=== PATIENT | male | born 1985 | race Two or more races ===

== ENCOUNTER 2017-08-10 11:23 | Inpatient (IN) | payer OTHER ==
[2017-08-10 16:27] VITALS: BMI 22.2
--- NOTE | 2017-08-10 16:46 | HP ---
Admission ROS [facility] Chief Complaint: I am here for rehab. I am trying to stay clean. Allergies/Adverse Reactions: Allergies Allergy/AdvReac Type Severity Reaction Status Date / Time cephalexin [From Keflex] Allergy Severe Hives Verified 08/10/17 16:18 spicy foods Allergy Uncoded 08/10/17 16:18 History of Present Illness: 32 yo male with hx IV heroin, nicotine, cocaine / crack, marijuana dependence is here seeking rehab. Reports consume marijuana because it helps stimulate his appetite and his anxiety. Smokes 5 cigarettes per day. PMH of HIV CD4 : 20 and recently started on medication and viral load in 2 million, HEP C not treated, mitral valve regurgitation, depression and anxiety, cocaine psychosis . Patient was hospitalized [facility] 07/28/17 - 08/10/17 for cellulitis of the right arm. Chest x ray 07/28/17 while at [facility]. Longest period of sobriety while in senior care x 3 months. Reports attempted to commit suicide 11/23/2013, currently denies suicidal / homicidal ideation. Hx of OD April 2017. - Ebola screening Have you traveled outside of the country in the last 21 days: No Have you had contact with anyone from an Ebola affected area: No Have you been sick,other than usual withdrawal symptoms: No Do you have a fever: No - Review of Systems Constitutional: Changes in sleep (attirbutes to anxiety), Weakness, Unintentional Wgt. Loss EENT: reports: Nose Congestion, Other (need glasses does not use) Respiratory: reports: No Symptoms reported Cardiac: reports: No Symptoms Reported GI: reports: Constipated (d/t methadone while in the hospital), Poor Appetite, Poor Fluid Intake : reports: Urgency Musculoskeletal: reports: Back Pain, Joint Pain Integumentary: reports: Other Neuro: reports: No Symptoms reported Endocrine: reports: No Symptoms Reported Hematology: reports: No Symptoms Reported Psychiatric: reports: Orientated x3, Anxious, Depressed Other Systems: Reviewed and Negative Patient History - Patient Medical History Hx Anemia: No Hx Asthma: No Hx Chronic Obstructive Pulmonary Disease (COPD): No Hx Cancer: No Hx Cardiac Disorders: Yes (Mitral valave reger) Hx Congestive Heart Failure: No Hx Hypertension: No Hx Hypercholesterolemia: No Hx Pacemaker: No HX Cerebrovascular Accident: No Hx Seizures: No Hx Dementia: No Hx Diabetes: No Hx Gastrointestinal Disorders: No Hx Liver Disease: Yes (Hep C ) Hx Genitourinary Disorders: No Hx Sexually Transmitted Disorders: No Hx Renal Disease (ESRD): No Hx Thyroid Disease: No Hx Human Immunodeficiency Virus (HIV): Yes (CD 4 = 20) Hx Hepatitis C: Yes (not treated ) Hx Depression: Yes Hx Suicide Attempt: Yes Hx Bipolar Disorder: No Hx Schizophrenia: No - Patient Surgical History Past Surgical History: No Hx Neurologic Surgery: No Hx Cataract Extraction: No Hx Cardiac Surgery: No Hx Lung Surgery: No Hx Breast Surgery: No Hx Breast Biopsy: No Hx Abdominal Surgery: No Hx Appendectomy: No Hx Cholecystectomy: No Hx Genitourinary Surgery: No Hx Section: No Hx Orthopedic Surgery: Yes (Cyst on the tail bone removal 2014) Hx Hysterectomy: No Anesthesia Reaction: No - PPD History Previous Implant?: No Documented Results: Negative w/proof PPD to be Administered?: No - Smoking Cessation Smoking history: Current every day smoker Have you smoked in the past 12 months: Yes Aproximately how many cigarettes per day: 5 Hx Chewing Tobacco Use: No Initiated information on smoking cessation: Yes 'Breaking Loose' booklet given: 08/10/17 - Substance & Tx. History Hx Alcohol Use: Yes Hx Substance Use: Yes Substance Use Type: Alcohol, Cocaine, Heroin Hx Substance Use Treatment: Yes ([facility] detox 07/28/17 - 08/10/17) - Substances Abused Heroin Route: Injection Frequency: Daily Amount used: 10-15 bags Age of first use: 21 Date of Last Use: 07/27/17 Cocaine Route: Injection Frequency: Daily Amount used: 1-2 grams Age of first use: 13 Date of Last Use: 07/27/17 Marijuana/Hashish Route: Smoking Frequency: Daily Amount used: 1/2 joint Age of first use: 14 Date of Last Use: 08/10/17 Family Disease History - Family Disease History Family Disease History: Other: Father (hx of Cocaine and Alcohol dep, alive), Mother (unkown ) Admission Physical Exam [facility] - Vital Signs Vital Signs: Vital Signs - 24 hr 08/10/17 16:13 Temperature 98.3 F Pulse Rate 106 H Respiratory 18 Rate Blood Pressure 120/82 - Physical General Appearance: Yes: No Apparent Distress, Disheveled, Thin, Anxious HEENTM: Yes: EOMI, Hearing grossly Normal, Normal ENT Inspection, Normocephalic , Normal Voice, CONNER, Pharynx Normal, Tm's normal Respiratory: Yes: Chest Non-Tender, Lungs Clear, Normal Breath Sounds, No Respiratory Distress, No Accessory Muscle Use Neck: Yes: Trachea in good position, Crepetius Breast: Yes: Breast Exam Deferred Cardiology: Yes: Regular Rhythm, Regular Rate, S1, S2 Abdominal: Yes: Normal Bowel Sounds, Non Tender, Flat, Soft Genitourinary: Yes: Within Normal Limits Back: Yes: Normal Inspection Musculoskeletal: Yes: full range of Motion, Gait Steady, Pelvis Stable Extremities: Yes: Normal Capillary Refill, Normal Inspection, Normal Range of Motion, Non-Tender 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: 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: 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 NML intact, Fully Oriented, Alert, Motor Strength 5/5, Depressed Affect Integumentary: Yes: Normal Color, Dry, Warm, Track [place] (in different healing stages) Lymphatic: Yes: Within Normal Limits - Diagnostic (1) Opioid dependence Current Visit: Yes Status: Acute Qualifiers: Substance use status: uncomplicated Qualified Code(s): F11.20 - Opioid dependence, uncomplicated (2) HIV (human immunodeficiency virus infection) Current Visit: Yes Status: Acute (3) Cocaine use, uncomplicated Current Visit: Yes Status: Acute (4) Alcohol dependence Current Visit: Yes Status: Acute Qualifiers: Substance use status: uncomplicated Qualified Code(s): F10.20 - Alcohol dependence, uncomplicated (5) IVDU (intravenous drug user) Current Visit: Yes Status: Chronic (6) Depressed affect Current Visit: Yes Status: Acute (7) History of cellulitis Current Visit: Yes Status: Acute (8) Dehydration Current Visit: Yes Status: Acute (9) Weight loss Current Visit: Yes Status: Acute [facility] Breath Alcohol Content Breath Alcohol Content: 0 Urine Drug Screen - Results Drug Screen Negative: No Urine Drug Screen Results: THC-Marijuana, MTD-Methadone
[2017-08-10] MEDS ORDERED: MAGNESIUM CITRATE 300 ML BOTTLE PO PRN (17:16)
[2017-08-10] MEDS ORDERED: MENTHOL/PHENOL 1 EACH UD MM PRN (17:16)
[2017-08-10] MEDS ORDERED: ACETAMINOPHEN 325 MG TABLET (FP) PO PRN (17:16)
[2017-08-10] MEDS ORDERED: P-EPHED 60MG/TRIPROLIDI 2.5MG TABLET PO PRN (17:16)
[2017-08-10] MEDS ORDERED: MAGNESIUM HYDROX 2400MG/30ML ORAL SUSPENSION 30 ML CUP PO PRN (17:16)
[2017-08-10] MEDS ORDERED: NICOTINE POLACRILEX 2 MG GUM BC PRN (17:16)
[2017-08-10] MEDS ORDERED: MAG HYDROX/AL HYDROX/SIMETH 30 ML UNIT-DOSE CUP PO PRN (17:16)
[2017-08-10] MEDS ORDERED: IBUPROFEN 400 MG TABLET (FP) PO PRN (17:16)
[2017-08-10] MEDS ORDERED: guaiFENesin/D-METHORPHAN HB 10 ML UNIT-DOSE CUPS PO PRN (17:16)
[2017-08-10] MEDS ORDERED: AZITHROMYCIN 600 MG TABLET PO SCH (17:30)
[2017-08-10] MEDS: SULFAMETHOXAZOLE/TRIMETHOPRIM 800MG/160MG D.S. TABLET PO SCH (21:35)
[2017-08-10] MEDS: THIAMINE HCL 100 MG TABLET (FP) PO SCH (21:35)
[2017-08-10 22:53] LABS: URINE APPEARANCE CLEAR; URINE BILIRUBIN NEGATIVE (NEGATIVE); URINE BLOOD NEGATIVE (NEGATIVE); URINE COLOR YELLOW; URINE GLUCOSE (UA) NEGATIVE (NEGATIVE); URINE KETONE NEGATIVE (NEGATIVE); URINE LEUK ESTERASE TRACE (NEGATIVE); URINE NITRITE NEGATIVE (NEGATIVE); URINE PROTEIN NEGATIVE (NEGATIVE); URINE UROBILINOGEN NEGATIVE mg/dL (0.2-1.0)
[2017-08-10 23:04] LABS: EPI CELLS RARE /HPF (FEW); URINE MUCUS RARE
[2017-08-11] MEDS: SULFAMETHOXAZOLE/TRIMETHOPRIM 800MG/160MG D.S. TABLET PO SCH ×2 (10:35→21:21)
[2017-08-11] MEDS: PRENATAL VITAMINS W/ FOLIC ACID TABLET (FP) PO SCH (10:36)
[2017-08-11] MEDS: NICOTINE 14 MG/24 HOURS TOPICAL PATCH TD SCH (10:36)
[2017-08-11] MEDS: AZITHROMYCIN 600 MG TABLET PO SCH (10:37)
[2017-08-11] MEDS: ELVITEG/COB/EMTRI/TENOFO (STRIBILD) TABLET -NF PO SCH (10:37)
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
[2017-08-11] MEDS ORDERED: hydrOXYzine PAMOATE 50 MG CAPSULE (FP) PO PRN (14:04)
[2017-08-11 14:33] LABS: HEMATOCRIT 38.7 % (35.4-49); HEMOGLOBIN 12.8 GM/dL (11.7-16.9); MCH 28.6 pg (25.7-33.7); MEAN CELL VOLUME 86.7 fl (80-96); MEAN PLT VOLUME 7.7 fl (7.5-11.1); PLATELET COUNT 216 K/MM3 (134-434); RBC 4.47 M/mm3 (4.00-5.60); RDW 15.1 % (11.9-15.9)
[2017-08-11 16:06] LABS: ALBUMIN 3.6 g/dl (3.4-5.0); ANION GAP 10 (8-16); BILIRUBIN,TOTAL 0.8 mg/dL (0.2-1.0); BLOOD UREA NITROGEN 19 mg/dL (7-18); CALCIUM 8.5 mg/dL (8.5-10.1); CHLORIDE 102 mmol/L (98-107); CO2 23 mmol/L (21-32); CREATININE 1.2 mg/dL (0.7-1.3); GLUCOSE,RANDOM 154 mg/dL (74-106); POTASSIUM 4.2 mmol/L (3.5-5.1); SGOT/AST 37 U/L (15-37); SGPT/ALT 44 U/L (12-78); SODIUM 135 mmol/L (136-145); TOT PROT 8.5 g/dl (6.4-8.2)
[2017-08-11 16:07] LABS: ALK PHOS 97 U/L (45-117)
[2017-08-11] MEDS: traZODone HCL 100 MG TABLET (FP) PO SCH (21:21)
[2017-08-11] MEDS: THIAMINE HCL 100 MG TABLET (FP) PO SCH (21:21)
[2017-08-12] MEDS: PRENATAL VITAMINS W/ FOLIC ACID TABLET (FP) PO SCH (09:57)
[2017-08-12] MEDS: SULFAMETHOXAZOLE/TRIMETHOPRIM 800MG/160MG D.S. TABLET PO SCH ×2 (09:57→21:23)
[2017-08-12] MEDS: ELVITEG/COB/EMTRI/TENOFO (STRIBILD) TABLET -NF PO SCH (09:57)
[2017-08-12] MEDS: NICOTINE 14 MG/24 HOURS TOPICAL PATCH TD SCH (09:58)
[2017-08-12] MEDS: traZODone HCL 100 MG TABLET (FP) PO SCH (21:23)
[2017-08-12] MEDS: THIAMINE HCL 100 MG TABLET (FP) PO SCH (21:23)
[2017-08-13] MEDS: SULFAMETHOXAZOLE/TRIMETHOPRIM 800MG/160MG D.S. TABLET PO SCH (10:11)
[2017-08-13] MEDS: NICOTINE 14 MG/24 HOURS TOPICAL PATCH TD SCH (10:11)
[2017-08-13] MEDS: PRENATAL VITAMINS W/ FOLIC ACID TABLET (FP) PO SCH (10:11)
[2017-08-13] MEDS: ELVITEG/COB/EMTRI/TENOFO (STRIBILD) TABLET -NF PO SCH (10:11)
--- NOTE | 2017-08-13 13:59 | PN ---
[facility] Progress Note (SOAP) Subjective: increased lump left forearm, but rerythema decreaseing. no h/o idu at this site Objective: 08/13/17 13:57 Vital Signs - 24 hr 08/13/17 08/13/17 08/13/17 00:30 03:30 07:10 Temperature 97.5 F L Pulse Rate 92 H Respiratory 17 18 18 Rate Blood Pressure 128/80 Laboratory Tests 08/10/17 08/10/17 08/10/17 08:45 08:45 08:45 WBC 5.0 RBC 4.47 Hgb 12.8 Hct 38.7 MCV 86.7 MCH 28.6 MCHC 33.0 RDW 15.1 Plt Count 216 MPV 7.7 Sodium 135 L Potassium 4.2 Chloride 102 Carbon Dioxide 23 Anion Gap 10 BUN 19 H Creatinine 1.2 Creat Clearance w eGFR > 60 Random Glucose 154 H Calcium 8.5 Total Bilirubin 0.8 AST 37 ALT 44 Alkaline Phosphatase 97 Total Protein 8.5 H Albumin 3.6 Urine Color Urine Appearance Urine pH Ur Specific [place] Urine Protein Urine Glucose (UA) Urine Ketones Urine Blood Urine Nitrite Urine Bilirubin Urine Urobilinogen Ur Leukocyte Esterase Urine WBC (Auto) Urine RBC (Auto) Ur Epithelial Cells Urine Mucus RPR Titer Nonreactive 08/10/17 Unknown WBC RBC Hgb Hct MCV MCH MCHC RDW Plt Count MPV Sodium Potassium Chloride Carbon Dioxide Anion Gap BUN Creatinine Creat Clearance w eGFR Random Glucose Calcium Total Bilirubin AST ALT Alkaline Phosphatase Total Protein Albumin Urine Color Yellow Urine Appearance Clear Urine pH 5.0 Ur Specific [place] 1.021 Urine Protein Negative Urine Glucose (UA) Negative Urine Ketones Negative Urine Blood Negative Urine Nitrite Negative Urine Bilirubin Negative Urine Urobilinogen Negative Ur Leukocyte Esterase Trace Urine WBC (Auto) 4 Urine RBC (Auto) 2 Ur Epithelial Cells Rare Urine Mucus Rare RPR Titer tender lump 1 cm, non fluctuant, no erytehma slightly tender, possible foliculitis, patietn is allergic to keflex adn has beent aking bactrim Assessment: 08/13/17 13:58 lump left forearm, non fluctuant, will d/c bactrim start aubmentin follow if increaasing size/painh/fever or flutuance develops will send to ED for i and d. patient is HIV +.
[2017-08-13] MEDS: PANTOPRAZOLE 40 MG TABLET (FP) PO SCH (15:03)
[2017-08-13] MEDS: AMOX TR/POT CLAV 875MG/125MG TABLETS (FP) PO SCH (17:38)
[2017-08-13] MEDS: THIAMINE HCL 100 MG TABLET (FP) PO SCH (21:22)
[2017-08-13] MEDS: NAPROXEN 500 MG TABLET (FP) PO SCH (21:22)
[2017-08-13] MEDS: traZODone HCL 100 MG TABLET (FP) PO SCH (21:23)
[2017-08-14] MEDS: AMOX TR/POT CLAV 875MG/125MG TABLETS (FP) PO SCH ×2 (08:25→17:12)
[2017-08-14] MEDS: PRENATAL VITAMINS W/ FOLIC ACID TABLET (FP) PO SCH (10:08)
[2017-08-14] MEDS: NAPROXEN 500 MG TABLET (FP) PO SCH ×2 (10:08→21:26)
[2017-08-14] MEDS: NICOTINE 14 MG/24 HOURS TOPICAL PATCH TD SCH (10:08)
[2017-08-14] MEDS: PANTOPRAZOLE 40 MG TABLET (FP) PO SCH (10:08)
[2017-08-14] MEDS: ELVITEG/COB/EMTRI/TENOFO (STRIBILD) TABLET -NF PO SCH (10:08)
[2017-08-14] MEDS ORDERED: COLLOIDAL OATMEAL 1 BAR EACH TP PRN (13:58)
--- NOTE | 2017-08-14 14:06 | PN ---
BHS Progress Note (SOAP) Subjective: dry skin, lump on the right arm, and left left forearm Objective: 08/14/17 14:03 Vital Signs Temperature 97.7 F 08/14/17 06:59 Pulse Rate 89 08/14/17 06:59 Respiratory Rate 18 08/14/17 06:59 Blood Pressure 136/96 08/14/17 06:59 O2 Sat by Pulse Oximetry (%) Laboratory Last Values WBC 5.0 K/mm3 (4.0-10.0) 08/10/17 08:45 RBC 4.47 M/mm3 (4.00-5.60) 08/10/17 08:45 Hgb 12.8 GM/dL (11.7-16.9) 08/10/17 08:45 Hct 38.7 % (35.4-49) 08/10/17 08:45 MCV 86.7 fl (80-96) 08/10/17 08:45 MCH 28.6 pg (25.7-33.7) 08/10/17 08:45 MCHC 33.0 g/dl (32.0-35.9) 08/10/17 08:45 RDW 15.1 % (11.9-15.9) 08/10/17 08:45 Plt Count 216 K/MM3 (134-434) 08/10/17 08:45 MPV 7.7 fl (7.5-11.1) 08/10/17 08:45 Sodium 135 mmol/L (136-145) L 08/10/17 08:45 Potassium 4.2 mmol/L (3.5-5.1) 08/10/17 08:45 Chloride 102 mmol/L (98-107) 08/10/17 08:45 Carbon Dioxide 23 mmol/L (21-32) 08/10/17 08:45 Anion Gap 10 (8-16) 08/10/17 08:45 BUN 19 mg/dL (7-18) H 08/10/17 08:45 Creatinine 1.2 mg/dL (0.7-1.3) 08/10/17 08:45 Creat Clearance w eGFR > 60 (>60) 08/10/17 08:45 Random Glucose 154 mg/dL (74-106) H 08/10/17 08:45 Calcium 8.5 mg/dL (8.5-10.1) 08/10/17 08:45 Total Bilirubin 0.8 mg/dL (0.2-1.0) 08/10/17 08:45 AST 37 U/L (15-37) 08/10/17 08:45 ALT 44 U/L (12-78) 08/10/17 08:45 Alkaline Phosphatase 97 U/L (45-117) 08/10/17 08:45 Total Protein 8.5 g/dl (6.4-8.2) H 08/10/17 08:45 Albumin 3.6 g/dl (3.4-5.0) 08/10/17 08:45 Urine Color Yellow 08/10/17 Unknown Urine Appearance Clear 08/10/17 Unknown Urine pH 5.0 (5.0-8.0) 08/10/17 Unknown Ur Specific [place] 1.021 (1.001-1.035) 08/10/17 Unknown Urine Protein Negative (NEGATIVE) 08/10/17 Unknown Urine Glucose (UA) Negative (NEGATIVE) 08/10/17 Unknown Urine Ketones Negative (NEGATIVE) 08/10/17 Unknown Urine Blood Negative (NEGATIVE) 08/10/17 Unknown Urine Nitrite Negative (NEGATIVE) 08/10/17 Unknown Urine Bilirubin Negative (NEGATIVE) 08/10/17 Unknown Urine Urobilinogen Negative mg/dL (0.2-1.0) 08/10/17 Unknown Ur Leukocyte Esterase Trace (NEGATIVE) 08/10/17 Unknown Urine WBC (Auto) 4 /hpf (3-5) 08/10/17 Unknown Urine RBC (Auto) 2 /hpf (0-3) 08/10/17 Unknown Ur Epithelial Cells Rare /HPF (FEW) 08/10/17 Unknown Urine Mucus Rare 08/10/17 Unknown RPR Titer Nonreactive (NONREACTIVE) 08/10/17 08:45 GENERAL APPEARANCE: Well developed, well nourished, alert and cooperative, and appears to be in no acute distress. CARDIAC: Normal S1 and S2. No S3, S4. Rhythm is regular. + Murmur LUNGS: Clear to auscultation and percussion without rales, rhonchi, wheezing or diminished breath sounds. SKIN: Skin normal color, texture and turgor. + dry skin, +non-purulent 1 CM nodule on the right deltoid and left forearm 08/14/17 14:07 Assessment: 08/14/17 14:08 Foliculitis Dry skin Plan: Continue keep skin clean and dry A[place]o soap Increase fluids Continue Augmentin as previsously prescribe Mupirocin BID TOP to the affected area
[2017-08-14] MEDS: MUPIROCIN CA 2% TOPICAL CREAM 15 GM TUBE TP SCH ×2 (17:14→21:26)
[2017-08-14] MEDS: THIAMINE HCL 100 MG TABLET (FP) PO SCH (21:26)
[2017-08-14] MEDS: traZODone HCL 100 MG TABLET (FP) PO SCH (21:26)
[2017-08-15] MEDS: AMOX TR/POT CLAV 875MG/125MG TABLETS (FP) PO SCH ×2 (08:43→17:49)
[2017-08-15] MEDS: PANTOPRAZOLE 40 MG TABLET (FP) PO SCH (10:08)
[2017-08-15] MEDS: NAPROXEN 500 MG TABLET (FP) PO SCH ×2 (10:08→21:36)
[2017-08-15] MEDS: NICOTINE 14 MG/24 HOURS TOPICAL PATCH TD SCH (10:08)
[2017-08-15] MEDS: PRENATAL VITAMINS W/ FOLIC ACID TABLET (FP) PO SCH (10:08)
[2017-08-15] MEDS: ELVITEG/COB/EMTRI/TENOFO (STRIBILD) TABLET -NF PO SCH (10:10)
[2017-08-15] MEDS: MUPIROCIN CA 2% TOPICAL CREAM 15 GM TUBE TP SCH ×2 (10:10→21:36)
--- NOTE | 2017-08-15 13:38 | EKG ---
Test Reason : Blood Pressure : / mmHG Vent. Rate : 082 BPM Atrial Rate : 082 BPM P-R Int : 124 ms QRS Dur : 088 ms QT Int : 376 ms P-R-T Axes : 025 074 073 degrees QTc Int : 439 ms NORMAL SINUS RHYTHM NORMAL ECG NO PREVIOUS ECGS AVAILABLE Confirmed by MD Leland, Brendon ([id number]) on 08/15/2017 1:38:01 PM Referred By: Confirmed By:Brendon Ha MD
[2017-08-15] MEDS: LOPERAMIDE HCL 2 MG CAPSULE PO PRN ×2 (14:28→21:37)
[2017-08-15] MEDS: THIAMINE HCL 100 MG TABLET (FP) PO SCH (21:35)
[2017-08-15] MEDS: traZODone HCL 100 MG TABLET (FP) PO SCH (21:35)
[2017-08-16] MEDS: AMOX TR/POT CLAV 875MG/125MG TABLETS (FP) PO SCH ×2 (08:29→17:32)
[2017-08-16] MEDS: PANTOPRAZOLE 40 MG TABLET (FP) PO SCH (10:21)
[2017-08-16] MEDS: NICOTINE 14 MG/24 HOURS TOPICAL PATCH TD SCH (10:22)
[2017-08-16] MEDS: NAPROXEN 500 MG TABLET (FP) PO SCH ×2 (10:22→21:33)
[2017-08-16] MEDS: PRENATAL VITAMINS W/ FOLIC ACID TABLET (FP) PO SCH (10:22)
[2017-08-16] MEDS: MUPIROCIN CA 2% TOPICAL CREAM 15 GM TUBE TP SCH ×2 (10:22→21:34)
[2017-08-16] MEDS: ELVITEG/COB/EMTRI/TENOFO (STRIBILD) TABLET -NF PO SCH (10:23)
[2017-08-16] MEDS: LOPERAMIDE HCL 2 MG CAPSULE PO PRN (10:25)
[2017-08-16] MEDS: traZODone HCL 100 MG TABLET (FP) PO SCH (21:33)
[2017-08-16] MEDS: THIAMINE HCL 100 MG TABLET (FP) PO SCH (21:33)
[2017-08-17] MEDS: AMOX TR/POT CLAV 875MG/125MG TABLETS (FP) PO SCH ×2 (08:26→17:47)
[2017-08-17] MEDS: PANTOPRAZOLE 40 MG TABLET (FP) PO SCH (10:10)
[2017-08-17] MEDS: PRENATAL VITAMINS W/ FOLIC ACID TABLET (FP) PO SCH (10:11)
[2017-08-17] MEDS: NAPROXEN 500 MG TABLET (FP) PO SCH ×2 (10:11→21:29)
[2017-08-17] MEDS: ELVITEG/COB/EMTRI/TENOFO (STRIBILD) TABLET -NF PO SCH (10:11)
[2017-08-17] MEDS: MUPIROCIN CA 2% TOPICAL CREAM 15 GM TUBE TP SCH ×2 (10:12→21:29)
[2017-08-17] MEDS: NICOTINE 14 MG/24 HOURS TOPICAL PATCH TD SCH (10:13)
[2017-08-17] MEDS: THIAMINE HCL 100 MG TABLET (FP) PO SCH (21:29)
[2017-08-17] MEDS: traZODone HCL 100 MG TABLET (FP) PO SCH (21:29)
[2017-08-18] MEDS: AMOX TR/POT CLAV 875MG/125MG TABLETS (FP) PO SCH ×2 (08:26→17:45)
[2017-08-18] MEDS: NICOTINE 14 MG/24 HOURS TOPICAL PATCH TD SCH (10:30)
[2017-08-18] MEDS: PRENATAL VITAMINS W/ FOLIC ACID TABLET (FP) PO SCH (10:30)
[2017-08-18] MEDS: PANTOPRAZOLE 40 MG TABLET (FP) PO SCH (10:30)
[2017-08-18] MEDS: NAPROXEN 500 MG TABLET (FP) PO SCH ×2 (10:30→21:37)
[2017-08-18] MEDS: ELVITEG/COB/EMTRI/TENOFO (STRIBILD) TABLET -NF PO SCH (10:32)
[2017-08-18] MEDS: AZITHROMYCIN 600 MG TABLET PO SCH (10:33)
[2017-08-18] MEDS: MUPIROCIN CA 2% TOPICAL CREAM 15 GM TUBE TP SCH ×2 (10:33→21:37)
[2017-08-18] MEDS: traZODone HCL 100 MG TABLET (FP) PO SCH (21:37)
[2017-08-18] MEDS: THIAMINE HCL 100 MG TABLET (FP) PO SCH (21:37)
[2017-08-19] MEDS: AMOX TR/POT CLAV 875MG/125MG TABLETS (FP) PO SCH ×2 (08:41→17:55)
[2017-08-19] MEDS: NAPROXEN 500 MG TABLET (FP) PO SCH ×2 (10:15→21:28)
[2017-08-19] MEDS: ELVITEG/COB/EMTRI/TENOFO (STRIBILD) TABLET -NF PO SCH (10:15)
[2017-08-19] MEDS: NICOTINE 14 MG/24 HOURS TOPICAL PATCH TD SCH (10:15)
[2017-08-19] MEDS: PANTOPRAZOLE 40 MG TABLET (FP) PO SCH (10:15)
[2017-08-19] MEDS: PRENATAL VITAMINS W/ FOLIC ACID TABLET (FP) PO SCH (10:15)
[2017-08-19] MEDS: MUPIROCIN CA 2% TOPICAL CREAM 15 GM TUBE TP SCH ×2 (10:15→21:28)
[2017-08-19] MEDS: THIAMINE HCL 100 MG TABLET (FP) PO SCH (21:28)
[2017-08-19] MEDS: traZODone HCL 100 MG TABLET (FP) PO SCH (21:28)
[2017-08-20] MEDS: AMOX TR/POT CLAV 875MG/125MG TABLETS (FP) PO SCH ×2 (08:10→18:47)
[2017-08-20] MEDS: PANTOPRAZOLE 40 MG TABLET (FP) PO SCH (10:29)
[2017-08-20] MEDS: PRENATAL VITAMINS W/ FOLIC ACID TABLET (FP) PO SCH (10:29)
[2017-08-20] MEDS: NAPROXEN 500 MG TABLET (FP) PO SCH ×2 (10:29→21:30)
[2017-08-20] MEDS: MUPIROCIN CA 2% TOPICAL CREAM 15 GM TUBE TP SCH ×2 (10:30→21:30)
[2017-08-20] MEDS: NICOTINE 14 MG/24 HOURS TOPICAL PATCH TD SCH (10:30)
[2017-08-20] MEDS: ELVITEG/COB/EMTRI/TENOFO (STRIBILD) TABLET -NF PO SCH (10:31)
[2017-08-20] MEDS: THIAMINE HCL 100 MG TABLET (FP) PO SCH (21:30)
[2017-08-20] MEDS: traZODone HCL 100 MG TABLET (FP) PO SCH (21:30)
[2017-08-21] MEDS: AMOX TR/POT CLAV 875MG/125MG TABLETS (FP) PO SCH ×2 (08:35→18:09)
[2017-08-21] MEDS: PANTOPRAZOLE 40 MG TABLET (FP) PO SCH (10:17)
[2017-08-21] MEDS: NAPROXEN 500 MG TABLET (FP) PO SCH ×2 (10:17→21:29)
[2017-08-21] MEDS: ELVITEG/COB/EMTRI/TENOFO (STRIBILD) TABLET -NF PO SCH (10:18)
[2017-08-21] MEDS: PRENATAL VITAMINS W/ FOLIC ACID TABLET (FP) PO SCH (10:18)
[2017-08-21] MEDS: NICOTINE 14 MG/24 HOURS TOPICAL PATCH TD SCH (10:18)
[2017-08-21] MEDS: MUPIROCIN CA 2% TOPICAL CREAM 15 GM TUBE TP SCH ×2 (10:21→21:30)
[2017-08-21] MEDS: traZODone HCL 100 MG TABLET (FP) PO SCH (21:29)
[2017-08-21] MEDS: THIAMINE HCL 100 MG TABLET (FP) PO SCH (21:29)
[2017-08-22] MEDS: AMOX TR/POT CLAV 875MG/125MG TABLETS (FP) PO SCH ×2 (08:28→17:48)
[2017-08-22] MEDS: NAPROXEN 500 MG TABLET (FP) PO SCH ×2 (10:19→21:31)
[2017-08-22] MEDS: PRENATAL VITAMINS W/ FOLIC ACID TABLET (FP) PO SCH (10:19)
[2017-08-22] MEDS: ELVITEG/COB/EMTRI/TENOFO (STRIBILD) TABLET -NF PO SCH (10:19)
[2017-08-22] MEDS: PANTOPRAZOLE 40 MG TABLET (FP) PO SCH (10:19)
[2017-08-22] MEDS: NICOTINE 14 MG/24 HOURS TOPICAL PATCH TD SCH (10:20)
[2017-08-22] MEDS: MUPIROCIN CA 2% TOPICAL CREAM 15 GM TUBE TP SCH ×2 (10:20→21:32)
[2017-08-22] MEDS: traZODone HCL 100 MG TABLET (FP) PO SCH (21:31)
[2017-08-22] MEDS: THIAMINE HCL 100 MG TABLET (FP) PO SCH (21:31)
[2017-08-23] MEDS: PRENATAL VITAMINS W/ FOLIC ACID TABLET (FP) PO SCH (10:24)
[2017-08-23] MEDS: AMOX TR/POT CLAV 875MG/125MG TABLETS (FP) PO SCH ×2 (10:24→17:51)
[2017-08-23] MEDS: NAPROXEN 500 MG TABLET (FP) PO SCH ×2 (10:24→21:26)
[2017-08-23] MEDS: NICOTINE 14 MG/24 HOURS TOPICAL PATCH TD SCH (10:25)
[2017-08-23] MEDS: PANTOPRAZOLE 40 MG TABLET (FP) PO SCH (10:26)
[2017-08-23] MEDS: ELVITEG/COB/EMTRI/TENOFO (STRIBILD) TABLET -NF PO SCH (10:26)
[2017-08-23] MEDS: MUPIROCIN CA 2% TOPICAL CREAM 15 GM TUBE TP SCH ×2 (10:27→21:26)
[2017-08-23] MEDS: traZODone HCL 100 MG TABLET (FP) PO SCH (21:26)
[2017-08-23] MEDS: THIAMINE HCL 100 MG TABLET (FP) PO SCH (21:26)
[2017-08-24 06:48] VITALS: BP 148/84; PULSE 99; TEMP 97.7
[2017-08-24] MEDS: PRENATAL VITAMINS W/ FOLIC ACID TABLET (FP) PO SCH (09:14)
[2017-08-24] MEDS: MUPIROCIN CA 2% TOPICAL CREAM 15 GM TUBE TP SCH (09:14)
[2017-08-24] MEDS: NICOTINE 14 MG/24 HOURS TOPICAL PATCH TD SCH (09:14)
[2017-08-24] MEDS: PANTOPRAZOLE 40 MG TABLET (FP) PO SCH (09:14)
[2017-08-24] MEDS: NAPROXEN 500 MG TABLET (FP) PO SCH (09:14)
[2017-08-24] MEDS: AMOX TR/POT CLAV 875MG/125MG TABLETS (FP) PO SCH (09:14)
[2017-08-24] MEDS: ELVITEG/COB/EMTRI/TENOFO (STRIBILD) TABLET -NF PO SCH (09:15)
--- NOTE | 2017-08-24 09:19 | PN ---
Psychiatric Progress Note Vital Signs: Vital Signs Period Temp Pulse Resp BP Sys/Downs Pulse Ox Last 24 Hr 97.7 F 99 16-16 148/84 Date of Session: 08/24/17 Chief Complaint:: discharge visit HPI: Patient has addressed cocaine, cannabis, opioid, nicotine dependence comorbid Substance induced anxiety and mood disorder. ROS: HIV medically managed. Hep C. Current Medications: Active Medications Generic Name Dose Route Start Last Admin Trade Name Freq PRN Reason Stop Dose Admin Acetaminophen 650 mg 08/10/17 17:16 Tylenol - PO Q4H PRN FEVER Al Hydroxide/Mg Hydroxide 30 ml 08/10/17 17:16 Mylanta Oral Suspension - PO Q6H PRN DYSPEPSIA Amoxicillin/Clavulanate Potassium 1 tab 08/13/17 17:30 08/24/17 09:14 Augmentin - 875mg Tablet PO 1 tab BID@0800,1730 RADHA Administration Azithromycin 1,200 mg 08/11/17 10:00 08/18/17 10:33 Zithromax - PO 1,200 mg Fr@1000 RADHA Administration Colloidal Oatmeal 1 applic 08/14/17 13:58 08/15/17 22:03 Aveeno Soap - TP 1 applic DAILY PRN Administration HYGEINE Elvitegravir/Cobicis/Emtricit/Tenof 1 tab 08/11/17 10:00 08/24/17 09:15 Stribild (Non-Formulary) PO 1 tab DAILY RADHA Administration Eucalyptus/Menthol/Phenol/Sorbitol 1 each 08/10/17 17:16 Cepastat Lozenge - MM Q4H PRN SORE THROAT Guaifenesin 10 ml 08/10/17 17:16 Robitussin Dm - PO Q6H PRN COUGH Hydroxyzine Pamoate 50 mg 08/11/17 14:04 08/13/17 13:04 Vistaril - PO 50 mg Q4H PRN Administration ANXIETY Loperamide HCl 4 mg 08/10/17 17:16 08/16/17 10:25 Imodium - PO 4 mg Q6H PRN Administration DIARRHEA Magnesium Citrate 300 ml 08/10/17 17:16 Citroma - PO Q48H PRN CONSTIPATION Magnesium Hydroxide 30 ml 08/10/17 17:16 Milk Of Magnesia - PO DAILY PRN CONSTIPATION Mupirocin 1 applic 08/14/17 17:00 08/24/17 09:14 Bactroban 2% Cream - TP Not Given BID RADHA Naproxen 500 mg 08/13/17 22:00 08/24/17 09:14 Naprosyn - PO 500 mg BID RADHA Administration Nicotine 14 mg 08/11/17 10:00 08/24/17 09:14 Nicoderm Patch - TD Not Given DAILY RADHA Nicotine Polacrilex 2 mg 08/10/17 17:16 Nicorette Gum - BC Q2H PRN NICOTINE REPLACEMENT RX Pantoprazole Sodium 40 mg 08/13/17 14:15 08/24/17 09:14 Protonix - PO 40 mg DAILY RADHA Administration Multivit/Folic Acid/Iron 1 tab 08/11/17 10:00 08/24/17 09:14 Vitamins (Sjr) - PO 1 tab DAILY RADHA Administration Pseudoephedrine/Triprolidine 1 combo 08/10/17 17:16 Actifed - PO TID PRN NASAL CONGESTION Thiamine HCl 100 mg 08/10/17 22:00 08/23/17 21:26 Vitamin B1 - PO 100 mg HS RADHA Administration Trazodone HCl 100 mg 08/11/17 22:00 08/23/17 21:26 Desyrel - PO 100 mg HS RADHA Administration Current Side Effect: No Lab tests ordered: No Lab tests reviewed: Yes Provider note:: Patient has completed today his treatment and met his goals, will continue to address his issues at the next level of care ([facility]), he learhed in this treatment coping skills to prevent relapse and identified his triggers and was encouraged to utilize all supports to prevent relapses. Patient reports trazodone was effective, no side-efefcts reported, scripts provided for 30 days , patient is stable for discharge today. Total face to face time:: 15 Mental Status Exam - Mental Status Exam Alert and Oriented to: Time, Place, Person Cognitive Function: Good Patient Appearance: Well Groomed Mood: Hopeful Affect: Appropriate, Mood Congruent Patient Behavior: Appropriate, Cooperative Speech Pattern: Clear, Appropriate Voice Loudness: Normal Thought Process: Intact, Goal Oriented Thought Disorder: Not Present Hallucinations: Denies Suicidal Ideation: Denies Homicidal Ideation: Denies Insight/Judgement: Fair Sleep: Fair Appetite: Fair Muscle strength/Tone: Normal Gait/Station: Normal Psychiatric Treatment Plan - Problem List (1) Cocaine dependence Current Visit: Yes (2) Cannabis dependence Current Visit: Yes (3) Opioid dependence Current Visit: Yes Qualifiers: Substance use status: uncomplicated Qualified Code(s): F11.20 - Opioid dependence, uncomplicated (4) Substance induced mood disorder Current Visit: Yes (5) Substance-induced anxiety disorder Current Visit: Yes (6) Nicotine dependence Current Visit: Yes
== END 2017-08-24 09:30 | disposition home or self-care (01) | DRG 772 ==
LOC: YASAS 11:23 → Y5N 17:43
PROVIDERS: ADMIT Psychiatry & Neurology Psychiatry; ATTEND Psychiatry & Neurology Psychiatry
PROC: HZ42ZZZ Group Counseling for Substance Abuse Treatment, Cognitive-Behavioral (ICD-10-PCS; principal; 2017-08-10)
DX: F11.20 Opioid dependence, uncomplicated (principal); F14.20 Cocaine dependence, uncomplicated; F12.20 Cannabis dependence, uncomplicated; F10.20 Alcohol dependence, uncomplicated; F17.210 Nicotine dependence, cigarettes, uncomplicated; F19.24 Other psychoactive substance dependence with psychoactive substance-induced mood disorder; F19.280 Other psychoactive substance dependence with psychoactive substance-induced anxiety disorder; Z21 Asymptomatic human immunodeficiency virus [HIV] infection status; B18.2 Chronic viral hepatitis C; L73.9 Follicular disorder, unspecified; L98.8 Other specified disorders of the skin and subcutaneous tissue; E86.0 Dehydration; Z87.898 Personal history of other specified conditions; Z88.1 Allergy status to other antibiotic agents; Z59.0 Homelessness
CPT/HCPCS: 36415; 80053; 81003; 81015; 82962; 85027; 86593; 93005; 93010

== ENCOUNTER 2018-02-27 12:07 | Inpatient (IN) | payer OTHER ==
[2018-02-27 13:59] VITALS: BMI 21.2
--- NOTE | 2018-02-27 20:18 | HP ---
COWS - Scale Resting Pulse: 1= [place] 81-100 Sweatin=Flushed/Facial Moisture Restless Observation: 1= Difficult to Sit Still Pupil Size: 1= Pupils >than Normal Bone or Joint Aches: 2= Severe Diffuse Aches Runny Nose/ Eye Tearin= Runny Nose/Eyes GI Upset > 30mins: 1= Stomach Cramp Tremor Observation: 1= Tremor [place], Not Seen Yawning Observation: 1= 1-2x During Session Anxiety or Irritability: 2=Irritable/Anxious Goose Flesh Skin: 3=Piloerection COWS Score: 17 Admission ROS S - [facility] Chief Complaint: WITHDRAWAL SYMPTOMS Allergies/Adverse Reactions: Allergies Allergy/AdvReac Type Severity Reaction Status Date / Time cephalexin [From Keflex] Allergy Severe Hives Verified 02/27/18 18:43 spicy foods Allergy Uncoded 02/27/18 18:43 History of Present Illness: 33 Y.O. MAN WITH AN EXTENSIVE HISTORY OF HEROIN AND COCAINE DEPENDENCE IS HERE SEEKING DETOX. HE REPORTS HE LAST COMPLETED DETOX 1 MONTH AGO AT [facility]. REPORTS HIS LONG PERIOD OF ILLICIT DRUG ABSTINENCE HAS BEEN 1 YEAR. Exam Limitations: No Limitations - Ebola screening Have you traveled outside of the country in the last 21 days: No Have you had contact with anyone from an Ebola affected area: No Have you been sick,other than usual withdrawal symptoms: No Do you have a fever: No - Review of Systems Constitutional: Chills, Loss of Appetite, Night Sweats, Unintentional Wgt. Loss EENT: reports: Tearing, Nose Congestion Respiratory: reports: Cough Cardiac: reports: No Symptoms Reported GI: reports: Poor Appetite : reports: No Symptoms Reported Musculoskeletal: reports: Back Pain, Joint Pain Integumentary: reports: No Symptoms Reported Neuro: reports: No Symptoms reported Endocrine: reports: No Symptoms Reported Hematology: reports: No Symptoms Reported Psychiatric: reports: Anxious, Depressed Other Systems: Reviewed and Negative Patient History - Patient Medical History Hx Anemia: No Hx Asthma: No Hx Chronic Obstructive Pulmonary Disease (COPD): No Hx Cancer: No Hx Cardiac Disorders: No Hx Congestive Heart Failure: No Hx Hypertension: No Hx Hypercholesterolemia: No Hx Pacemaker: No HX Cerebrovascular Accident: No Hx Seizures: No Hx Dementia: No Hx Diabetes: No Hx Gastrointestinal Disorders: No Hx Liver Disease: Yes (Hep C ) Hx Genitourinary Disorders: No Hx Sexually Transmitted Disorders: No Hx Renal Disease (ESRD): No Hx Thyroid Disease: No Hx Human Immunodeficiency Virus (HIV): Yes Hx Hepatitis C: Yes (not treated ) Hx Depression: Yes Hx Suicide Attempt: Yes (Tried to overdose in 2013) Hx Bipolar Disorder: No Hx Schizophrenia: No Other Medical History: C/o Insomnia - Patient Surgical History Past Surgical History: No Hx Neurologic Surgery: No Hx Cataract Extraction: No Hx Cardiac Surgery: No Hx Lung Surgery: No Hx Breast Surgery: No Hx Breast Biopsy: No Hx Abdominal Surgery: No Hx Appendectomy: No Hx Cholecystectomy: No Hx Genitourinary Surgery: No Hx Section: No Hx Orthopedic Surgery: Yes Hx Hysterectomy: No Anesthesia Reaction: No - PPD History Previous Implant?: No Documented Results: Negative w/o proof PPD to be Administered?: Yes - Reproductive History Patient is a Female of Child Bearing Age (11 -55 yrs old): No - Smoking Cessation Smoking history: Current every day smoker Have you smoked in the past 12 months: Yes Aproximately how many cigarettes per day: 5 If you are a former smoker, when did you quit?: 20 Hx Chewing Tobacco Use: No Initiated information on smoking cessation: Yes 'Breaking Loose' booklet given: 02/27/18 - Substance & Tx. History Hx Alcohol Use: No Hx Substance Use: Yes Substance Use Type: Heroin Hx Substance Use Treatment: Yes (Detox: 01/2018 at [facility] ) - Substances Abused Heroin Route: Injection Frequency: Daily Amount used: 10 BAGS Age of first use: 19 Date of Last Use: 02/27/18 Cocaine Route: Injection Frequency: Daily Amount used: $60 WORTH Age of first use: 16 Date of Last Use: 02/26/18 Family Disease History - Family Disease History Family Disease History: Other: Father (hx of Cocaine and Alcohol dep, alive), Mother (unkown ) Admission Physical Exam BHS - Vital Signs Vital Signs: Vital Signs - 24 hr 02/27/18 13:55 Temperature 99.4 F Pulse Rate 81 Respiratory 18 Rate Blood Pressure 133/81 - Physical General Appearance: Yes: Thin, Tremorous, Sweating, Anxious HEENTM: Yes: Hearing grossly Normal, Normocephalic, Normal Voice, Other (Poor dentation) Respiratory: Yes: Chest Non-Tender, Lungs Clear, Normal Breath Sounds, No Respiratory Distress, No Accessory Muscle Use Neck: Yes: No masses,lesions,Nodules, Trachea in good position Breast: Yes: Breast Exam Deferred Cardiology: Yes: Regular Rhythm, Regular Rate Abdominal: Yes: Normal Bowel Sounds, Non Tender Genitourinary: Yes: Other (No complaints reported) Back: Yes: Normal Inspection Musculoskeletal: Yes: Gait Steady, Pelvis Stable Extremities: Yes: Normal Capillary Refill, Normal Inspection 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: Yes: Alert, Normal Mood/Affect, Normal Response Integumentary: Yes: Dry, Warm, Track [place] Lymphatic: Yes: Within Normal Limits - Diagnostic (1) Opioid dependence with withdrawal Current Visit: Yes Status: Chronic (2) HCV (hepatitis C virus) Current Visit: Yes Status: Chronic (3) Nicotine dependence Current Visit: Yes Status: Chronic (4) Cocaine use, uncomplicated Current Visit: Yes Status: Chronic (5) HIV (human immunodeficiency virus infection) Current Visit: Yes Status: Chronic (6) IVDU (intravenous drug user) Current Visit: Yes Status: Chronic Cleared for Admission [facility] - Detox or Rehab [facility] Level of Care: Medically Managed Detox Regimen/Protocol: Methadone [facility] Breath Alcohol Content Breath Alcohol Content: 0 Urine Drug Screen - Results Drug Screen Negative: No Urine Drug Screen Results: THC-Marijuana, HALINA-Cocaine, OPI-Opiates, BAR- Barbiturates, MTD-Methadone, FEN-Fentanyl
[2018-02-27] MEDS ORDERED: MAGNESIUM HYDROX 2400MG/30ML ORAL SUSPENSION 30 ML CUP PO PRN (20:33)
[2018-02-27] MEDS ORDERED: hydrOXYzine PAMOATE 50 MG CAPSULE (FP) PO PRN (20:33)
[2018-02-27] MEDS ORDERED: MAGNESIUM CITRATE 300 ML BOTTLE PO PRN (20:33)
[2018-02-27] MEDS ORDERED: ACETAMINOPHEN 325 MG TABLET (FP) PO PRN (20:33)
[2018-02-27] MEDS ORDERED: P-EPHED 60MG/TRIPROLIDI 2.5MG TABLET PO PRN (20:33)
[2018-02-27] MEDS ORDERED: guaiFENesin/D-METHORPHAN HB 10 ML UNIT-DOSE CUPS PO PRN (20:33)
[2018-02-27] MEDS ORDERED: IBUPROFEN 400 MG TABLET (FP) PO PRN (20:33)
[2018-02-27] MEDS ORDERED: MAG HYDROX/AL HYDROX/SIMETH 30 ML UNIT-DOSE CUP PO PRN (20:33)
[2018-02-27] MEDS ORDERED: LOPERAMIDE HCL 2 MG CAPSULE PO PRN (20:33)
[2018-02-27] MEDS ORDERED: MENTHOL/PHENOL 1 EACH UD MM PRN (20:33)
[2018-02-27] MEDS ORDERED: METHADONE HCL 10 MG TABLET (FOR DETOX USE ONLY) PO ONE ×2 (20:33→23:00)
[2018-02-27] MEDS ORDERED: BENZOCAINE 20 % GEL TUBE MM PRN (20:36)
[2018-02-27] MEDS: BACITRACIN 0.9 GM PACKET TP SCH (21:54)
[2018-02-27] MEDS: THIAMINE HCL 100 MG TABLET (FP) PO SCH (21:58)
[2018-02-27] MEDS ORDERED: MELATONIN 5 MG TABLETS PO PRN (22:00)
[2018-02-28 00:55] LABS: URINE APPEARANCE SLCLOUDY; URINE BILIRUBIN NEGATIVE (<2.0 mg/dL); URINE COLOR YELLOW; URINE GLUCOSE (UA) NEGATIVE (NEGATIVE); URINE KETONE NEGATIVE (NEGATIVE); URINE LEUK ESTERASE TRACE (NEGATIVE); URINE NITRITE NEGATIVE (NEGATIVE); URINE PROTEIN NEGATIVE (NEGATIVE); URINE UROBILINOGEN NEGATIVE mg/dL (0.2-1.0)
[2018-02-28 01:07] LABS: CALCIUM OXALATE CRYSTALS MANY /hpf (NONE SEEN); EPI CELLS RARE /HPF (FEW); URINE BACTERIA RARE /hpf (NONE SEEN); URINE HYALINE CAST 2 /lpf; URINE MUCUS FEW
--- NOTE | 2018-02-28 09:12 | CONSULT ---
[facility] Psychiatric Consult - Data Date of interview: 02/28/18 Admission source: [facility] Identifying data: This is a 33 years old male, single, unemployed, homeles, with no financial support, with no psychiatric hospitalization history, reports Cocaine, Heroin and Nicotin dependence, reporting withdrawal symptoms, seeking for detox. Substance Abuse History: - Smoking Cessation. Smoking history: Current every day smoker. Have you smoked in the past 12 months: Yes. Aproximately how many cigarettes per day: 5. If you are a former smoker, when did you quit?: 20. Hx Chewing Tobacco Use: No. Initiated information on smoking cessation: Yes. ' Breaking Loose' booklet given: 02/27/18. - Substance & Tx. History. Hx Alcohol Use: No. Hx Substance Use: Yes. Substance Use Type: Heroin. Hx Substance Use Treatment: Yes (Detox: 01/2018 at [facility] ). - Substances Abused. Heroin. Route: Injection. Frequency: Daily. Amount used: 10 BAGS. Age of first use: 19. Date of Last Use: 02/27/18. Cocaine. Route: Injection. Frequency: Daily. Amount used: $60 WORTH. Age of first use: 16. Date of Last Use: 02/26/18 Medical History: Cellulitis history, HIV+, HepC+ Psychiatric History: Patient reports history of anxiety and depression, reports no psychiatric medictions taking prior to admission, denies suicdial and homicidal history. As per computer there is a suicidal attempt on 2013 by OD, no hospitalization reported, denies suicidal history, reports it was not suicdial attempt Physical/Sexual Abuse/Trauma History: Denies Additional Comment: Observation. Detox Unit Care Protocol Mental Status Exam - Mental Status Exam Alert and Oriented to: Person Cognitive Function: Fair Mood: Sad Affect: Flat Patient Behavior: Sedated Speech Pattern: Delayed Voice Loudness: Mildly Soft/Quiet Thought Process: Circumstantial Thought Disorder: Being Controlled Hallucinations: Denies Suicidal Ideation: Denies Homicidal Ideation: Denies Insight/Judgement: Fair Sleep: Difficulty falling asleep Appetite: Weight loss Muscle strength/Tone: Mild Hypotonicity Gait/Station: Shuffling Additional Comments: Observation. Detox Unit Care Protocol Psychiatric Findings - Problem List ([place] 1, 2,3) (1) Cocaine use, uncomplicated Current Visit: Yes Status: Chronic (2) Nicotine dependence Current Visit: Yes Status: Chronic (3) Opioid dependence with withdrawal Current Visit: Yes Status: Chronic (4) Alcohol dependence Current Visit: No Status: Acute Qualifiers: Substance use status: uncomplicated Qualified Code(s): F10.20 - Alcohol dependence, uncomplicated (5) Cannabis dependence Current Visit: No Status: Acute (6) Opioid dependence Current Visit: No Status: Acute Qualifiers: Substance use status: uncomplicated Qualified Code(s): F11.20 - Opioid dependence, uncomplicated (7) Substance induced mood disorder Current Visit: No Status: Acute (8) Substance-induced anxiety disorder Current Visit: No Status: Acute - Initial Treatment Plan Initial Treatment Plan: Observation. Detox Unit Care Protocol
[2018-02-28] MEDS ORDERED: METHADONE HCL 10 MG TABLET (FOR DETOX USE ONLY) PO ONE (10:00)
[2018-02-28 10:03] LABS: HEMATOCRIT 34.4 % (35.4-49); HEMOGLOBIN 11.6 GM/dL (11.7-16.9); MCH 29.1 pg (25.7-33.7); MCHC 33.7 g/dl (32.0-35.9); MEAN CELL VOLUME 86.2 fl (80-96); MEAN PLT VOLUME 8.3 fl (7.5-11.1); PLATELET COUNT 122 K/MM3 (134-434); RBC 3.99 M/mm3 (4.00-5.60); RDW 14.6 % (11.9-15.9); WHITE BLOOD COUNT 3.5 K/mm3 (4.0-10.0)
[2018-02-28 10:13] LABS: CHLORIDE 105 mmol/L (98-107); POTASSIUM 4.3 mmol/L (3.5-5.1); SODIUM 139 mmol/L (136-145)
[2018-02-28 10:21] LABS: ALBUMIN 2.6 g/dl (3.4-5.0); ALK PHOS 73 U/L (45-117); ANION GAP 3 MMOL/L (8-16); BILIRUBIN,TOTAL 0.3 mg/dL (0.2-1.0); BLOOD UREA NITROGEN 17 mg/dL (7-18); CALCIUM 7.9 mg/dL (8.5-10.1); CO2 31 mmol/L (21-32); CREATININE 0.9 mg/dL (0.7-1.3); GLUCOSE,RANDOM 94 mg/dL (74-106); SGOT/AST 35 U/L (15-37); SGPT/ALT 27 U/L (12-78); TOT PROT 6.8 g/dl (6.4-8.2)
[2018-02-28] MEDS: PRENATAL VITAMINS W/ FOLIC ACID TABLET (FP) PO SCH (10:39)
[2018-02-28] MEDS: diazePAM 5 MG TABLET PO PRN ×3 (10:39→22:22)
[2018-02-28] MEDS: BACITRACIN 0.9 GM PACKET TP SCH ×2 (10:39→22:22)
--- NOTE | 2018-02-28 11:44 | EKG ---
Test Reason : Blood Pressure : / mmHG Vent. Rate : 069 BPM Atrial Rate : 069 BPM P-R Int : 142 ms QRS Dur : 084 ms QT Int : 386 ms P-R-T Axes : 026 061 058 degrees QTc Int : 413 ms NORMAL SINUS RHYTHM NORMAL ECG WHEN COMPARED WITH ECG OF 10-AUG-2017 22:34, NO SIGNIFICANT CHANGE WAS FOUND Confirmed by TRISHA VUONG MD ([id number]) on 02/28/2018 11:44:42 AM Referred By: Confirmed By:TRISHA VUONG MD
--- NOTE | 2018-02-28 12:01 | PN ---
BHS COWS - Scale Resting Pulse: 1= [place] 81-100 Sweatin=Flushed/Facial Moisture Restless Observation: 1= Difficult to Sit Still Pupil Size: 1= Pupils >than Normal Bone or Joint Aches: 2= Severe Diffuse Aches Runny Nose/ Eye Tearin= Nasal Congestion GI Upset > 30mins: 1= Stomach Cramp Tremor Observation of Outstretched Hands: 2= Slight Tremor Visible Yawning Observation: 0= None Anxiety or Irritability: 1=Feels Anxious/Irritable Goose Flesh Skin: 0=Smooth Skin COWS Score: 12 BHS Progress Note (SOAP) Subjective: nterrupted sleep, sweats, shakes Objective: 02/28/18 11:59 Vital Signs Temperature 98.1 F 02/28/18 09:40 Pulse Rate 71 02/28/18 09:40 Respiratory Rate 16 02/28/18 09:40 Blood Pressure 120/76 02/28/18 09:40 O2 Sat by Pulse Oximetry (%) Laboratory Tests 02/27/18 02/28/18 02/28/18 23:22 07:00 07:00 WBC 3.5 L RBC 3.99 L Hgb 11.6 L Hct 34.4 L MCV 86.2 MCH 29.1 MCHC 33.7 RDW 14.6 Plt Count 122 L D MPV 8.3 Sodium 139 Potassium 4.3 Chloride 105 Carbon Dioxide 31 D Anion Gap 3 L BUN 17 Creatinine 0.9 Creat Clearance w eGFR > 60 Random Glucose 94 D Calcium 7.9 L Total Bilirubin 0.3 AST 35 ALT 27 D Alkaline Phosphatase 73 Total Protein 6.8 Albumin 2.6 L Urine Color Yellow Urine Appearance Slcloudy Urine pH 5.0 Ur Specific [place] 1.027 Urine Protein Negative Urine Glucose (UA) Negative Urine Ketones Negative Urine Blood 2+ H Urine Nitrite Negative Urine Bilirubin Negative Urine Urobilinogen Negative Ur Leukocyte Esterase Trace Urine WBC (Auto) 4 Urine RBC (Auto) 20 Ur Epithelial Cells Rare Calcium Oxalate Crystal Many Urine Bacteria Rare Hyaline Casts 2 Urine Mucus Few pt aox3 in nad ambulating Assessment: 02/28/18 12:00 withdrawal sx's hiv hcv Plan: cont. detox increase fluids
[2018-02-28] MEDS: THIAMINE HCL 100 MG TABLET (FP) PO SCH (22:22)
--- NOTE | 2018-03-01 09:26 | PN ---
BHS COWS - Scale Resting Pulse: 1= [place] 81-100 Sweatin= Chills/Flushing Restless Observation: 1= Difficult to Sit Still Pupil Size: 1= Pupils >than Normal Bone or Joint Aches: 2= Severe Diffuse Aches Runny Nose/ Eye Tearin= Nasal Congestion GI Upset > 30mins: 1= Stomach Cramp Tremor Observation of Outstretched Hands: 1= Tremor [place], Not Seen Yawning Observation: 1= 1-2x During Session Anxiety or Irritability: 2=Irritable/Anxious Goose Flesh Skin: 0=Smooth Skin COWS Score: 12 BHS Progress Note (SOAP) Subjective: sweat tremor trouble sleep at night Objective: 03/01/18 09:24 Vital Signs Temperature 98.1 F 03/01/18 09:03 Pulse Rate 73 03/01/18 09:03 Respiratory Rate 18 03/01/18 09:03 Blood Pressure 123/82 03/01/18 09:03 O2 Sat by Pulse Oximetry (%) Laboratory Last Values WBC 3.5 K/mm3 (4.0-10.0) L 02/28/18 07:00 RBC 3.99 M/mm3 (4.00-5.60) L 02/28/18 07:00 Hgb 11.6 GM/dL (11.7-16.9) L 02/28/18 07:00 Hct 34.4 % (35.4-49) L 02/28/18 07:00 MCV 86.2 fl (80-96) 02/28/18 07:00 MCH 29.1 pg (25.7-33.7) 02/28/18 07:00 MCHC 33.7 g/dl (32.0-35.9) 02/28/18 07:00 RDW 14.6 % (11.9-15.9) 02/28/18 07:00 Plt Count 122 K/MM3 (134-434) L D 02/28/18 07:00 MPV 8.3 fl (7.5-11.1) 02/28/18 07:00 Sodium 139 mmol/L (136-145) 02/28/18 07:00 Potassium 4.3 mmol/L (3.5-5.1) 02/28/18 07:00 Chloride 105 mmol/L (98-107) 02/28/18 07:00 Carbon Dioxide 31 mmol/L (21-32) D 02/28/18 07:00 Anion Gap 3 MMOL/L (8-16) L 02/28/18 07:00 BUN 17 mg/dL (7-18) 02/28/18 07:00 Creatinine 0.9 mg/dL (0.7-1.3) 02/28/18 07:00 Creat Clearance w eGFR > 60 (>60) 02/28/18 07:00 Random Glucose 94 mg/dL (74-106) D 02/28/18 07:00 Calcium 7.9 mg/dL (8.5-10.1) L 02/28/18 07:00 Total Bilirubin 0.3 mg/dL (0.2-1.0) 02/28/18 07:00 AST 35 U/L (15-37) 02/28/18 07:00 ALT 27 U/L (12-78) D 02/28/18 07:00 Alkaline Phosphatase 73 U/L (45-117) 02/28/18 07:00 Total Protein 6.8 g/dl (6.4-8.2) 02/28/18 07:00 Albumin 2.6 g/dl (3.4-5.0) L 02/28/18 07:00 Urine Color Yellow 02/27/18 23:22 Urine Appearance Slcloudy 02/27/18 23:22 Urine pH 5.0 (5.0-8.0) 02/27/18 23:22 Ur Specific [place] 1.027 (1.001-1.035) 02/27/18 23:22 Urine Protein Negative (NEGATIVE) 02/27/18 23:22 Urine Glucose (UA) Negative (NEGATIVE) 02/27/18 23:22 Urine Ketones Negative (NEGATIVE) 02/27/18 23:22 Urine Blood 2+ (NEGATIVE) H 02/27/18 23:22 Urine Nitrite Negative (NEGATIVE) 02/27/18 23:22 Urine Bilirubin Negative (<2.0 mg/dL) 02/27/18 23:22 Urine Urobilinogen Negative mg/dL (0.2-1.0) 02/27/18 23:22 Ur Leukocyte Esterase Trace (NEGATIVE) 02/27/18 23:22 Urine WBC (Auto) 4 /hpf (3-5) 02/27/18 23:22 Urine RBC (Auto) 20 /hpf (0-3) 02/27/18 23:22 Ur Epithelial Cells Rare /HPF (FEW) 02/27/18 23:22 Calcium Oxalate Crystal Many /hpf (NONE SEEN) 02/27/18 23:22 Urine Bacteria Rare /hpf (NONE SEEN) 02/27/18 23:22 Hyaline Casts 2 /lpf 02/27/18 23:22 Urine Mucus Few 02/27/18 23:22 RPR Titer Nonreactive (NONREACTIVE) 02/28/18 07:00 lab noted low calcium Assessment: 03/01/18 09:25 withdrawal sx Plan: continue detox oscal daily 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
[2018-03-01] MEDS ORDERED: METHADONE HCL 5 MG TABLET (FOR DETOX USE ONLY) PO ONE (10:00)
[2018-03-01] MEDS: PRENATAL VITAMINS W/ FOLIC ACID TABLET (FP) PO SCH (10:38)
[2018-03-01] MEDS: CALCIUM 500MG/VIT-D 200 UNITS COMBO TABLET (FP) PO SCH (10:38)
[2018-03-01] MEDS: BACITRACIN 0.9 GM PACKET TP SCH ×2 (10:38→23:00)
[2018-03-01] MEDS: diazePAM 5 MG TABLET PO PRN ×2 (10:41→16:46)
[2018-03-01] MEDS: THIAMINE HCL 100 MG TABLET (FP) PO SCH (23:00)
[2018-03-02] MEDS: diazePAM 5 MG TABLET PO PRN ×3 (00:46→17:18)
[2018-03-02] MEDS ORDERED: METHADONE HCL 5 MG TABLET (FOR DETOX USE ONLY) PO ONE (10:00)
[2018-03-02] MEDS: PRENATAL VITAMINS W/ FOLIC ACID TABLET (FP) PO SCH (10:08)
[2018-03-02] MEDS: BACITRACIN 0.9 GM PACKET TP SCH ×2 (10:09→23:17)
[2018-03-02] MEDS: CALCIUM 500MG/VIT-D 200 UNITS COMBO TABLET (FP) PO SCH (10:09)
--- NOTE | 2018-03-02 12:32 | PN ---
BHS Progress Note (SOAP) Subjective: INTERRUPTED SLEEP, SWEATS, Objective: 03/02/18 12:30 Vital Signs Temperature 98 F 03/02/18 09:49 Pulse Rate 72 03/02/18 09:49 Respiratory Rate 18 03/02/18 09:49 Blood Pressure 135/89 03/02/18 09:49 O2 Sat by Pulse Oximetry (%) Laboratory Tests 02/27/18 02/28/18 02/28/18 23:22 07:00 07:00 WBC 3.5 L RBC 3.99 L Hgb 11.6 L Hct 34.4 L MCV 86.2 MCH 29.1 MCHC 33.7 RDW 14.6 Plt Count 122 L D MPV 8.3 Sodium 139 Potassium 4.3 Chloride 105 Carbon Dioxide 31 D Anion Gap 3 L BUN 17 Creatinine 0.9 Creat Clearance w eGFR > 60 Random Glucose 94 D Calcium 7.9 L Total Bilirubin 0.3 AST 35 ALT 27 D Alkaline Phosphatase 73 Total Protein 6.8 Albumin 2.6 L Urine Color Yellow Urine Appearance Slcloudy Urine pH 5.0 Ur Specific [place] 1.027 Urine Protein Negative Urine Glucose (UA) Negative Urine Ketones Negative Urine Blood 2+ H Urine Nitrite Negative Urine Bilirubin Negative Urine Urobilinogen Negative Ur Leukocyte Esterase Trace Urine WBC (Auto) 4 Urine RBC (Auto) 20 Ur Epithelial Cells Rare Calcium Oxalate Crystal Many Urine Bacteria Rare Hyaline Casts 2 Urine Mucus Few RPR Titer 02/28/18 07:00 WBC RBC Hgb Hct MCV MCH MCHC RDW Plt Count MPV Sodium Potassium Chloride Carbon Dioxide Anion Gap BUN Creatinine Creat Clearance w eGFR Random Glucose Calcium Total Bilirubin AST ALT Alkaline Phosphatase Total Protein Albumin Urine Color Urine Appearance Urine pH Ur Specific [place] Urine Protein Urine Glucose (UA) Urine Ketones Urine Blood Urine Nitrite Urine Bilirubin Urine Urobilinogen Ur Leukocyte Esterase Urine WBC (Auto) Urine RBC (Auto) Ur Epithelial Cells Calcium Oxalate Crystal Urine Bacteria Hyaline Casts Urine Mucus RPR Titer Nonreactive PT AOX3 IN NAD Assessment: 03/02/18 12:31 WITHDRAWAL SX'SM Plan: CONT, DETOX INCREASE FLUIDS
[2018-03-02] MEDS: THIAMINE HCL 100 MG TABLET (FP) PO SCH (23:17)
[2018-03-03] MEDS ORDERED: METHADONE HCL 10 MG TABLET (FOR DETOX USE ONLY) PO ONE (10:00)
[2018-03-03] MEDS: BACITRACIN 0.9 GM PACKET TP SCH ×2 (10:46→23:49)
[2018-03-03] MEDS: CALCIUM 500MG/VIT-D 200 UNITS COMBO TABLET (FP) PO SCH (10:46)
[2018-03-03] MEDS: PRENATAL VITAMINS W/ FOLIC ACID TABLET (FP) PO SCH (10:46)
--- NOTE | 2018-03-03 14:41 | PN ---
BHS Progress Note (SOAP) Subjective: pt states he is feeling fine. Is nearing d/c O: Vital Signs - 24 hr 03/02/18 03/03/18 03/03/18 18:09 00:30 03:30 Temperature 97.5 F L Pulse Rate 75 Respiratory 16 18 18 Rate Blood Pressure 137/84 03/03/18 03/03/18 03/03/18 07:40 08:48 14:09 Temperature 96.4 F L 97.7 F 97.7 F Pulse Rate 64 81 78 Respiratory 18 16 16 Rate Blood Pressure 129/84 135/93 149/92 Laboratory Tests 02/27/18 02/28/18 02/28/18 23:22 07:00 07:00 WBC 3.5 L RBC 3.99 L Hgb 11.6 L Hct 34.4 L MCV 86.2 MCH 29.1 MCHC 33.7 RDW 14.6 Plt Count 122 L D MPV 8.3 Sodium 139 Potassium 4.3 Chloride 105 Carbon Dioxide 31 D Anion Gap 3 L BUN 17 Creatinine 0.9 Creat Clearance w eGFR > 60 Random Glucose 94 D Calcium 7.9 L Total Bilirubin 0.3 AST 35 ALT 27 D Alkaline Phosphatase 73 Total Protein 6.8 Albumin 2.6 L Urine Color Yellow Urine Appearance Slcloudy Urine pH 5.0 Ur Specific [place] 1.027 Urine Protein Negative Urine Glucose (UA) Negative Urine Ketones Negative Urine Blood 2+ H Urine Nitrite Negative Urine Bilirubin Negative Urine Urobilinogen Negative Ur Leukocyte Esterase Trace Urine WBC (Auto) 4 Urine RBC (Auto) 20 Ur Epithelial Cells Rare Calcium Oxalate Crystal Many Urine Bacteria Rare Hyaline Casts 2 Urine Mucus Few RPR Titer 02/28/18 07:00 WBC RBC Hgb Hct MCV MCH MCHC RDW Plt Count MPV Sodium Potassium Chloride Carbon Dioxide Anion Gap BUN Creatinine Creat Clearance w eGFR Random Glucose Calcium Total Bilirubin AST ALT Alkaline Phosphatase Total Protein Albumin Urine Color Urine Appearance Urine pH Ur Specific [place] Urine Protein Urine Glucose (UA) Urine Ketones Urine Blood Urine Nitrite Urine Bilirubin Urine Urobilinogen Ur Leukocyte Esterase Urine WBC (Auto) Urine RBC (Auto) Ur Epithelial Cells Calcium Oxalate Crystal Urine Bacteria Hyaline Casts Urine Mucus RPR Titer Nonreactive mild anemia increased BP a/p: continue detox protocol, d/c tomorrow
[2018-03-03] MEDS: THIAMINE HCL 100 MG TABLET (FP) PO SCH (23:49)
[2018-03-04] MEDS ORDERED: METHADONE HCL 5 MG TABLET (FOR DETOX USE ONLY) PO ONE (06:00)
--- NOTE | 2018-03-04 09:11 | DS ---
[facility] Detox Discharge Summary Admission Date: 02/27/18 Discharge Date: 03/04/18 - History Present History: Opioid Dependence Additional Comments: 33 years old male admitted on 02/27/18 for opiate withdrawal sx completed opiate detox regimen tolerated well denies opiate withdrawal sx alert oriented x 3 no acute distress aftercare revelation patient wants to return to hiv specialist agrees to return to [facility] for [facility] admission - Physical Exam Results Vital Signs: Vital Signs Temperature 97.7 F 03/04/18 07:13 Pulse Rate 69 03/04/18 07:13 Respiratory Rate 18 03/04/18 07:13 Blood Pressure 127/79 03/04/18 07:13 O2 Sat by Pulse Oximetry (%) Pertinent Admission Physical Exam Findings: opiate withdrawal sx Vital Signs Temperature 97.9 F 03/04/18 09:28 Pulse Rate 86 03/04/18 09:28 Respiratory Rate 18 03/04/18 09:28 Blood Pressure 136/89 03/04/18 09:28 O2 Sat by Pulse Oximetry (%) Laboratory Last Values WBC 3.5 K/mm3 (4.0-10.0) L 02/28/18 07:00 RBC 3.99 M/mm3 (4.00-5.60) L 02/28/18 07:00 Hgb 11.6 GM/dL (11.7-16.9) L 02/28/18 07:00 Hct 34.4 % (35.4-49) L 02/28/18 07:00 MCV 86.2 fl (80-96) 02/28/18 07:00 MCH 29.1 pg (25.7-33.7) 02/28/18 07:00 MCHC 33.7 g/dl (32.0-35.9) 02/28/18 07:00 RDW 14.6 % (11.9-15.9) 02/28/18 07:00 Plt Count 122 K/MM3 (134-434) L D 02/28/18 07:00 MPV 8.3 fl (7.5-11.1) 02/28/18 07:00 Sodium 139 mmol/L (136-145) 02/28/18 07:00 Potassium 4.3 mmol/L (3.5-5.1) 02/28/18 07:00 Chloride 105 mmol/L (98-107) 02/28/18 07:00 Carbon Dioxide 31 mmol/L (21-32) D 02/28/18 07:00 Anion Gap 3 MMOL/L (8-16) L 02/28/18 07:00 BUN 17 mg/dL (7-18) 02/28/18 07:00 Creatinine 0.9 mg/dL (0.7-1.3) 02/28/18 07:00 Creat Clearance w eGFR > 60 (>60) 02/28/18 07:00 Random Glucose 94 mg/dL (74-106) D 02/28/18 07:00 Calcium 7.9 mg/dL (8.5-10.1) L 02/28/18 07:00 Total Bilirubin 0.3 mg/dL (0.2-1.0) 02/28/18 07:00 AST 35 U/L (15-37) 02/28/18 07:00 ALT 27 U/L (12-78) D 02/28/18 07:00 Alkaline Phosphatase 73 U/L (45-117) 02/28/18 07:00 Total Protein 6.8 g/dl (6.4-8.2) 02/28/18 07:00 Albumin 2.6 g/dl (3.4-5.0) L 02/28/18 07:00 Urine Color Yellow 02/27/18 23:22 Urine Appearance Slcloudy 02/27/18 23:22 Urine pH 5.0 (5.0-8.0) 02/27/18 23:22 Ur Specific [place] 1.027 (1.001-1.035) 02/27/18 23:22 Urine Protein Negative (NEGATIVE) 02/27/18 23:22 Urine Glucose (UA) Negative (NEGATIVE) 02/27/18 23:22 Urine Ketones Negative (NEGATIVE) 02/27/18 23:22 Urine Blood 2+ (NEGATIVE) H 02/27/18 23:22 Urine Nitrite Negative (NEGATIVE) 02/27/18 23:22 Urine Bilirubin Negative (<2.0 mg/dL) 02/27/18 23:22 Urine Urobilinogen Negative mg/dL (0.2-1.0) 02/27/18 23:22 Ur Leukocyte Esterase Trace (NEGATIVE) 02/27/18 23:22 Urine WBC (Auto) 4 /hpf (3-5) 02/27/18 23:22 Urine RBC (Auto) 20 /hpf (0-3) 02/27/18 23:22 Ur Epithelial Cells Rare /HPF (FEW) 02/27/18 23:22 Calcium Oxalate Crystal Many /hpf (NONE SEEN) 02/27/18 23:22 Urine Bacteria Rare /hpf (NONE SEEN) 02/27/18 23:22 Hyaline Casts 2 /lpf 02/27/18 23:22 Urine Mucus Few 02/27/18 23:22 RPR Titer Nonreactive (NONREACTIVE) 02/28/18 07:00 lab noted recommend calcium rich food - Treatment Hospital Course: Detox Protocol Followed, Detoxed Safely, Responded well, Discharged Condition Good, Rehab Referral Accepted Patient has Accepted a Rehab Referral to: [facility] - Medication Discharge Medications: Ambulatory Orders NK [No Known Home Medication] 02/27/18 - Diagnosis (1) HCV (hepatitis C virus) Status: Chronic Qualifiers: Viral hepatitis chronicity: unspecified Hepatic coma status: without hepatic coma Qualified Code(s): B19.20 - Unspecified viral hepatitis C without hepatic coma (2) Nicotine dependence Status: Acute Qualifiers: Nicotine product type: cigarettes Substance use status: in withdrawal Qualified Code(s): F17.213 - Nicotine dependence, cigarettes, with withdrawal (3) Opioid dependence with withdrawal Status: Acute - AMA Did Patient Leave Against Medical Advice: No
[2018-03-04 09:29] VITALS: BP 136/89; PULSE 86; TEMP 97.9
[2018-03-04] MEDS: BACITRACIN 0.9 GM PACKET TP SCH (10:40)
[2018-03-04] MEDS: PRENATAL VITAMINS W/ FOLIC ACID TABLET (FP) PO SCH (10:40)
[2018-03-04] MEDS: CALCIUM 500MG/VIT-D 200 UNITS COMBO TABLET (FP) PO SCH (10:40)
== END 2018-03-04 10:40 | disposition home or self-care (01) | DRG 773 ==
LOC: YASAS 12:07 → Y6N 19:49
PROC: HZ2ZZZZ Detoxification Services for Substance Abuse Treatment (ICD-10-PCS; principal; 2018-02-27)
DX: F11.23 Opioid dependence with withdrawal (principal); F10.20 Alcohol dependence, uncomplicated; F14.20 Cocaine dependence, uncomplicated; F12.20 Cannabis dependence, uncomplicated; F17.210 Nicotine dependence, cigarettes, uncomplicated; F19.24 Other psychoactive substance dependence with psychoactive substance-induced mood disorder; F19.280 Other psychoactive substance dependence with psychoactive substance-induced anxiety disorder; Z21 Asymptomatic human immunodeficiency virus [HIV] infection status; B18.2 Chronic viral hepatitis C; Z91.5 Personal history of self-harm; Z88.1 Allergy status to other antibiotic agents; Z59.0 Homelessness
CPT/HCPCS: 36415; 80053; 81003; 81015; 85027; 86593; 93005; 93010

== ENCOUNTER 2018-07-12 14:34 | Inpatient (IN) | payer OTHER ==
[2018-07-12 15:48] VITALS: BMI 23.7
[2018-07-12] MEDS ORDERED: hydrOXYzine PAMOATE 50 MG CAPSULE (FP) PO PRN (16:50)
[2018-07-12] MEDS ORDERED: ACETAMINOPHEN 325 MG TABLET (FP) PO PRN (16:50)
[2018-07-12] MEDS ORDERED: MAG HYDROX/AL HYDROX/SIMETH 30 ML UNIT-DOSE CUP PO PRN (16:50)
[2018-07-12] MEDS ORDERED: MENTHOL/PHENOL 1 EACH UD MM PRN (16:50)
[2018-07-12] MEDS ORDERED: MAGNESIUM HYDROX 2400MG/30ML ORAL SUSPENSION 30 ML CUP PO PRN (16:50)
[2018-07-12] MEDS ORDERED: MAGNESIUM CITRATE 300 ML BOTTLE PO PRN (16:50)
[2018-07-12] MEDS ORDERED: NICOTINE POLACRILEX 4 MG GUM BC PRN (16:50)
[2018-07-12] MEDS ORDERED: guaiFENesin/D-METHORPHAN HB 10 ML UNIT-DOSE CUPS PO PRN (16:50)
[2018-07-12] MEDS ORDERED: IBUPROFEN 400 MG TABLET (FP) PO PRN (16:50)
[2018-07-12] MEDS ORDERED: P-EPHED 60MG/TRIPROLIDI 2.5MG TABLET PO PRN (16:50)
[2018-07-12] MEDS ORDERED: LOPERAMIDE HCL 2 MG CAPSULE PO PRN (16:50)
--- NOTE | 2018-07-12 16:50 | HP ---
COWS - Scale Resting Pulse: 0= [place] 80 or Below Sweatin=Flushed/Facial Moisture Restless Observation: 1= Difficult to Sit Still Pupil Size: 1= Pupils >than Normal Bone or Joint Aches: 1= Mild Discomfort Runny Nose/ Eye Tearin= Nasal Congestion GI Upset > 30mins: 2= Nausea/Diarrhea Tremor Observation: 1= Tremor [place], Not Seen Yawning Observation: 1= 1-2x During Session Anxiety or Irritability: 2=Irritable/Anxious Goose Flesh Skin: 0=Smooth Skin COWS Score: 12 CIWA Score - Admission Criteria OASAS Guidelines: Admission for Medically Managed Detox: Requires at least one of the followin. CIWA greater than 12 2. Seizures within the past 24 hours 3. Delirium tremens within the past 24 hours 4. Hallucinations within the past 24 hours 5. Acute intervention needed for co occurring medical disorder 6. Acute intervention needed for co occurring psychiatric disorder 7. Severe withdrawal that cannot be handled at a lower level of care (continued vomiting, continued diarrhea, abnormal vital signs) requiring intravenous medication and/or fluids 8. Admission ROS [facility] - HPI Chief Complaint: here for heroin and cocaine detox 33 yo with HIV and not taking meds, HCV, g/o depression/anxiety. Heroin- IV last use this AM. Uses 1 bundle a day Cocaine- $50/day, IV cigarettes- 1 PPD DUR/ISTOP: none recently UTox- THC, Cocaine, Fen, MOP Allergies/Adverse Reactions: Allergies Allergy/AdvReac Type Severity Reaction Status Date / Time cephalexin [From Keflex] Allergy Severe Hives Verified 07/12/18 16:43 spicy foods Allergy Uncoded 07/12/18 16:43 - Ebola screening Have you traveled outside of the country in the last 21 days: No Have you had contact with anyone from an Ebola affected area: No Have you been sick,other than usual withdrawal symptoms: No Do you have a fever: No Patient History - Patient Medical History Hx Anemia: No Hx Asthma: No Hx Chronic Obstructive Pulmonary Disease (COPD): No Hx Cancer: No Hx Cardiac Disorders: No Hx Congestive Heart Failure: No Hx Hypertension: No Hx Hypercholesterolemia: No Hx Pacemaker: No HX Cerebrovascular Accident: No Hx Seizures: No Hx Dementia: No Hx Diabetes: No Hx Gastrointestinal Disorders: No Hx Liver Disease: Yes (Hep C ) Hx Genitourinary Disorders: No Hx Sexually Transmitted Disorders: No Hx Renal Disease (ESRD): No Hx Thyroid Disease: No Hx Human Immunodeficiency Virus (HIV): Yes Hx Hepatitis C: Yes (not treated ) Hx Depression: Yes Hx Suicide Attempt: Yes (Tried to overdose in 2013) Hx Bipolar Disorder: No Hx Schizophrenia: No - Patient Surgical History Past Surgical History: No Hx Neurologic Surgery: No Hx Cataract Extraction: No Hx Cardiac Surgery: No Hx Lung Surgery: No Hx Breast Surgery: No Hx Breast Biopsy: No Hx Abdominal Surgery: No Hx Appendectomy: No Hx Cholecystectomy: No Hx Genitourinary Surgery: No Hx Section: No Hx Orthopedic Surgery: Yes Hx Hysterectomy: No Anesthesia Reaction: No - PPD History Date: 03/01/18 PPD to be Administered?: No - Smoking Cessation Smoking history: Current every day smoker Have you smoked in the past 12 months: Yes Aproximately how many cigarettes per day: 5 If you are a former smoker, when did you quit?: 20 Hx Chewing Tobacco Use: No Initiated information on smoking cessation: Yes 'Breaking Loose' booklet given: 07/12/18 - Substances Abused Heroin Route: Injection Frequency: Daily Amount used: 10 bags Age of first use: 20 Date of Last Use: 07/12/18 Cocaine Route: Injection Frequency: Daily Amount used: $50 Age of first use: 13 Date of Last Use: 07/11/18 Family Disease History - Family Disease History Family Disease History: Other: Father (hx of Cocaine and Alcohol dep, alive), Mother (unkown ) Admission Physical Exam BHS - Vital Signs Vital Signs: Vital Signs - 24 hr 07/12/18 15:45 Temperature 97.4 F L Pulse Rate 70 Respiratory 20 Rate Blood Pressure 106/68 - Physical General Appearance: Yes: Disheveled, Cachetic, Thin, Irritable HEENTM: Yes: Hearing grossly Normal Respiratory: Yes: Lungs Clear Neck: Yes: Within Normal Limits Cardiology: Yes: Regular Rate, S1, S2 Abdominal: Yes: Within Normal Limits Back: Yes: Within Normal Limits Musculoskeletal: Yes: Within Normal Limits Extremities: Yes: Within Normal Limits 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: Yes: Within Normal Limits Integumentary: Yes: Rash (on face-) Lymphatic: Yes: Within Normal Limits - Diagnostic (1) Nicotine dependence Current Visit: No Status: Acute Qualifiers: Nicotine product type: cigarettes Substance use status: in withdrawal Qualified Code(s): F17.213 - Nicotine dependence, cigarettes, with withdrawal (2) Opioid dependence with withdrawal Current Visit: No Status: Acute (3) Cocaine use, uncomplicated Current Visit: No Status: Chronic (4) HCV (hepatitis C virus) Current Visit: No Status: Chronic Qualifiers: Viral hepatitis chronicity: unspecified Hepatic coma status: without hepatic coma Qualified Code(s): B19.20 - Unspecified viral hepatitis C without hepatic coma (5) HIV (human immunodeficiency virus infection) Current Visit: No Status: Chronic (6) IVDU (intravenous drug user) Current Visit: No Status: Chronic Cleared for Admission [facility] - Detox or Rehab [facility] Level of Care: Medically Managed [facility] Breath Alcohol Content Breath Alcohol Content: 0 Urine Drug Screen - Results Drug Screen Negative: No Urine Drug Screen Results: THC-Marijuana, HALINA-Cocaine, OPI-Opiates, FEN-Fentanyl
[2018-07-12] MEDS ORDERED: COLLOIDAL OATMEAL 1 BAR EACH TP PRN (16:58)
[2018-07-12] MEDS ORDERED: METHADONE HCL 10 MG TABLET (FOR DETOX USE ONLY) PO ONE ×2 (19:00→23:00)
[2018-07-12] MEDS ORDERED: MELATONIN 5 MG TABLETS PO PRN (22:00)
[2018-07-12] MEDS: CLOTRIMAZOLE/BETAMET DIPROP 15 GM TUBE TP SCH (22:16)
[2018-07-12] MEDS: THIAMINE HCL 100 MG TABLET (FP) PO SCH (22:17)
[2018-07-13 03:32] LABS: URINE APPEARANCE CLOUDY; URINE BILIRUBIN NEGATIVE (<2.0 mg/dL); URINE COLOR DKYELLOW; URINE GLUCOSE (UA) NEGATIVE (NEGATIVE); URINE KETONE NEGATIVE (NEGATIVE); URINE LEUK ESTERASE NEGATIVE (NEGATIVE); URINE NITRITE POSITIVE (NEGATIVE); URINE PROTEIN NEGATIVE (NEGATIVE); URINE UROBILINOGEN NEGATIVE mg/dL (0.2-1.0)
[2018-07-13 03:38] LABS: EPI CELLS RARE /HPF (FEW); URINE BACTERIA RARE /hpf (NONE SEEN); URINE MUCUS RARE
[2018-07-13] MEDS ORDERED: METHADONE HCL 10 MG TABLET (FOR DETOX USE ONLY) PO ONE (10:00)
[2018-07-13] MEDS: diazePAM 5 MG TABLET PO PRN ×2 (10:13→22:23)
[2018-07-13] MEDS: PRENATAL VITAMINS W/ FOLIC ACID TABLET (FP) PO SCH (10:13)
[2018-07-13] MEDS: CLOTRIMAZOLE/BETAMET DIPROP 15 GM TUBE TP SCH ×2 (10:16→22:24)
[2018-07-13] MEDS: NICOTINE 21 MG/24 HOURS TOPICAL PATCH TD SCH (10:16)
[2018-07-13 10:34] LABS: HEMATOCRIT 34.6 % (35.4-49); HEMOGLOBIN 11.8 GM/dL (11.7-16.9); MCH 29.2 pg (25.7-33.7); MEAN CELL VOLUME 85.8 fl (80-96); MEAN PLT VOLUME 8.1 fl (7.5-11.1); PLATELET COUNT 132 K/MM3 (134-434); RBC 4.03 M/mm3 (4.00-5.60); RDW 13.9 % (11.9-15.9); WHITE BLOOD COUNT 4.6 K/mm3 (4.0-10.0)
[2018-07-13 10:38] LABS: ALK PHOS 96 U/L (45-117); ANION GAP 9 MMOL/L (8-16); BILIRUBIN,TOTAL 0.6 mg/dL (0.2-1); BLOOD UREA NITROGEN 24 mg/dL (7-18); CALCIUM 8.3 mg/dL (8.5-10.1); CHLORIDE 102 mmol/L (98-107); CO2 28 mmol/L (21-32); CREATININE 0.9 mg/dL (0.55-1.3); GLUCOSE,RANDOM 76 mg/dL (74-106); POTASSIUM 3.8 mmol/L (3.5-5.1); SGOT/AST 34 U/L (15-37); SGPT/ALT 37 U/L (13-61); SODIUM 138 mmol/L (136-145); TOT PROT 7.4 g/dl (6.4-8.2)
--- NOTE | 2018-07-13 16:04 | PN ---
BHS COWS - Scale Resting Pulse: 0= [place] 80 or Below Sweatin=Flushed/Facial Moisture Restless Observation: 0= Sits Still Pupil Size: 0= Normal to Room Light Bone or Joint Aches: 2= Severe Diffuse Aches Runny Nose/ Eye Tearin= None GI Upset > 30mins: 3= Vomiting/Diarrhea Tremor Observation of Outstretched Hands: 0= None Yawning Observation: 1= 1-2x During Session Anxiety or Irritability: 2=Irritable/Anxious Goose Flesh Skin: 3=Piloerection COWS Score: 13 BHS Progress Note (SOAP) Subjective: Interrupted Sleep, Vomiting, Body Aches, Sweating, Diarrhea. Objective: PATIENT A & O X 2 (UNCERTAIN ABOUT CURRENT DAY / DATE). PATIENT OBSERVED AMBULATING ON UNIT. IN NO ACUTE DISTRESS. (BURNING, PAIN, FREQUENCY, URGENCY, HESITANCY) OFFERED BY PATIENT DURING TODAY' S ROUNDS ASSESSMENT. 07/13/18 16:03 Vital Signs Temperature 97.8 F 07/13/18 14:03 Pulse Rate 67 07/13/18 14:03 Respiratory Rate 17 07/13/18 14:03 Blood Pressure 103/62 07/13/18 14:03 O2 Sat by Pulse Oximetry (%) Laboratory Tests 07/12/18 07/13/18 07/13/18 23:00 07:00 07:00 WBC 4.6 RBC 4.03 Hgb 11.8 Hct 34.6 L MCV 85.8 MCH 29.2 MCHC 34.0 RDW 13.9 Plt Count 132 L MPV 8.1 Sodium 138 Potassium 3.8 Chloride 102 Carbon Dioxide 28 Anion Gap 9 BUN 24 H Creatinine 0.9 Creat Clearance w eGFR > 60 Random Glucose 76 Calcium 8.3 L Total Bilirubin 0.6 AST 34 ALT 37 Alkaline Phosphatase 96 Total Protein 7.4 Albumin 3.0 L Urine Color Dkyellow Urine Appearance Cloudy Urine pH 5.0 Ur Specific [place] 1.021 Urine Protein Negative Urine Glucose (UA) Negative Urine Ketones Negative Urine Blood 2+ H Urine Nitrite Positive Urine Bilirubin Negative Urine Urobilinogen Negative Ur Leukocyte Esterase Negative Urine WBC (Auto) 1 Urine RBC (Auto) 4 Ur Epithelial Cells Rare Urine Bacteria Rare Urine Mucus Rare LABS NOTED. 07/13/18 16:09 Assessment: 07/13/18 16:06 WITHDRAWAL SYMPTOMS. THROMBOCYTOPENIA. Plan: CONTINUE DETOX. INCREASE DAILY PO FLUID INTAKE. PRN IMMODIUM FOR DIARRHEA. REPEAT UA FOR ADMISSION UA ABNORMALITIES.
[2018-07-13] MEDS: THIAMINE HCL 100 MG TABLET (FP) PO SCH (22:24)
[2018-07-14] MEDS ORDERED: METHADONE HCL 5 MG TABLET (FOR DETOX USE ONLY) PO ONE (10:00)
[2018-07-14] MEDS: NICOTINE 21 MG/24 HOURS TOPICAL PATCH TD SCH (10:17)
[2018-07-14] MEDS: PRENATAL VITAMINS W/ FOLIC ACID TABLET (FP) PO SCH (10:17)
[2018-07-14] MEDS: CLOTRIMAZOLE/BETAMET DIPROP 15 GM TUBE TP SCH ×2 (10:18→23:09)
[2018-07-14] MEDS ORDERED: CYCLOBENZAPRINE HCL 10 MG TABLET (FP) PO PRN (14:14)
--- NOTE | 2018-07-14 15:18 | PN ---
BHS COWS - Scale Resting Pulse: 1= [place] 81-100 Sweatin= Chills/Flushing Restless Observation: 1= Difficult to Sit Still Pupil Size: 0= Normal to Room Light Bone or Joint Aches: 2= Severe Diffuse Aches Runny Nose/ Eye Tearin= None GI Upset > 30mins: 2= Nausea/Diarrhea Tremor Observation of Outstretched Hands: 0= None Yawning Observation: 1= 1-2x During Session Anxiety or Irritability: 2=Irritable/Anxious Goose Flesh Skin: 3=Piloerection COWS Score: 13 BHS Progress Note (SOAP) Subjective: Body Aches, Diarrhea, Interrupted Sleep. Objective: PATIENT A & O X 2 (UNCERTAIN ABOUT CURRENT DAY / DATE). PATIENT OBSERVED AMBULATING ON UNIT. IN NO ACUTE DISTRESS. 07/14/18 15:16 Vital Signs Temperature 98.7 F 07/14/18 13:37 Pulse Rate 81 07/14/18 13:37 Respiratory Rate 18 07/14/18 13:37 Blood Pressure 121/80 07/14/18 13:37 O2 Sat by Pulse Oximetry (%) Laboratory Tests 07/12/18 07/13/18 07/13/18 23:00 07:00 07:00 WBC 4.6 RBC 4.03 Hgb 11.8 Hct 34.6 L MCV 85.8 MCH 29.2 MCHC 34.0 RDW 13.9 Plt Count 132 L MPV 8.1 Sodium 138 Potassium 3.8 Chloride 102 Carbon Dioxide 28 Anion Gap 9 BUN 24 H Creatinine 0.9 Creat Clearance w eGFR > 60 Random Glucose 76 Calcium 8.3 L Total Bilirubin 0.6 AST 34 ALT 37 Alkaline Phosphatase 96 Total Protein 7.4 Albumin 3.0 L Urine Color Dkyellow Urine Appearance Cloudy Urine pH 5.0 Ur Specific [place] 1.021 Urine Protein Negative Urine Glucose (UA) Negative Urine Ketones Negative Urine Blood 2+ H Urine Nitrite Positive Urine Bilirubin Negative Urine Urobilinogen Negative Ur Leukocyte Esterase Negative Urine WBC (Auto) 1 Urine RBC (Auto) 4 Ur Epithelial Cells Rare Urine Bacteria Rare Urine Mucus Rare RPR Titer 07/13/18 07:00 WBC RBC Hgb Hct MCV MCH MCHC RDW Plt Count MPV Sodium Potassium Chloride Carbon Dioxide Anion Gap BUN Creatinine Creat Clearance w eGFR Random Glucose Calcium Total Bilirubin AST ALT Alkaline Phosphatase Total Protein Albumin Urine Color Urine Appearance Urine pH Ur Specific [place] Urine Protein Urine Glucose (UA) Urine Ketones Urine Blood Urine Nitrite Urine Bilirubin Urine Urobilinogen Ur Leukocyte Esterase Urine WBC (Auto) Urine RBC (Auto) Ur Epithelial Cells Urine Bacteria Urine Mucus RPR Titer Nonreactive LABS NOTED. RESULTS OF REPEAT UA PENDING. 07/14/18 15:17 Assessment: 07/14/18 15:17 WITHDRAWAL SYMPTOMS. THROMBOCYTOPENIA. Plan: CONTINUE DETOX. INCREASE DAILY PO FLUID INTAKE.
[2018-07-14 16:28] LABS: URINE APPEARANCE CLEAR; URINE BILIRUBIN NEGATIVE (<2.0 mg/dL); URINE COLOR YELLOW; URINE GLUCOSE (UA) NEGATIVE (NEGATIVE); URINE KETONE NEGATIVE (NEGATIVE); URINE LEUK ESTERASE NEGATIVE (NEGATIVE); URINE NITRITE NEGATIVE (NEGATIVE); URINE PROTEIN NEGATIVE (NEGATIVE)
[2018-07-14 16:36] LABS: EPI CELLS RARE /HPF (FEW); URINE BACTERIA FEW /hpf (NONE SEEN); URINE MUCUS RARE
[2018-07-14] MEDS: diazePAM 5 MG TABLET PO PRN (17:51)
[2018-07-14] MEDS: THIAMINE HCL 100 MG TABLET (FP) PO SCH (23:09)
[2018-07-15 06:24] VITALS: BP 118/76; PULSE 56; TEMP 97.5
[2018-07-15] MEDS ORDERED: METHADONE HCL 5 MG TABLET (FOR DETOX USE ONLY) PO ONE (10:00)
--- NOTE | 2018-07-15 11:45 | DS ---
[facility] Detox Discharge Summary Admission Date: 07/12/18 Discharge Date: 07/15/18 - History Present History: Opioid Dependence Additional Comments: 33 years old male admitted on 07/12/18 for opiate withdrawal stabilization insists to leave the detox unit "something to do" alert no acute distress no suicidal ideation Pertinent Past History: encourage needle exchange program / follow up with infectious disease specialist and discuss important of adherence of ART / discuss medication assisted treatment program - Physical Exam Results Vital Signs: Vital Signs Temperature 97.5 F L 07/15/18 06:24 Pulse Rate 56 L 07/15/18 06:24 Respiratory Rate 18 07/15/18 06:30 Blood Pressure 118/76 07/15/18 06:24 O2 Sat by Pulse Oximetry (%) Pertinent Admission Physical Exam Findings: opiate withdrawal sx Laboratory Last Values WBC 4.6 K/mm3 (4.0-10.0) 07/13/18 07:00 RBC 4.03 M/mm3 (4.00-5.60) 07/13/18 07:00 Hgb 11.8 GM/dL (11.7-16.9) 07/13/18 07:00 Hct 34.6 % (35.4-49) L 07/13/18 07:00 MCV 85.8 fl (80-96) 07/13/18 07:00 MCH 29.2 pg (25.7-33.7) 07/13/18 07:00 MCHC 34.0 g/dl (32.0-35.9) 07/13/18 07:00 RDW 13.9 % (11.9-15.9) 07/13/18 07:00 Plt Count 132 K/MM3 (134-434) L 07/13/18 07:00 MPV 8.1 fl (7.5-11.1) 07/13/18 07:00 Sodium 138 mmol/L (136-145) 07/13/18 07:00 Potassium 3.8 mmol/L (3.5-5.1) 07/13/18 07:00 Chloride 102 mmol/L (98-107) 07/13/18 07:00 Carbon Dioxide 28 mmol/L (21-32) 07/13/18 07:00 Anion Gap 9 MMOL/L (8-16) 07/13/18 07:00 BUN 24 mg/dL (7-18) H 07/13/18 07:00 Creatinine 0.9 mg/dL (0.55-1.3) 07/13/18 07:00 Creat Clearance w eGFR > 60 (>60) 07/13/18 07:00 Random Glucose 76 mg/dL (74-106) 07/13/18 07:00 Calcium 8.3 mg/dL (8.5-10.1) L 07/13/18 07:00 Total Bilirubin 0.6 mg/dL (0.2-1) 07/13/18 07:00 AST 34 U/L (15-37) 07/13/18 07:00 ALT 37 U/L (13-61) 07/13/18 07:00 Alkaline Phosphatase 96 U/L (45-117) 07/13/18 07:00 Total Protein 7.4 g/dl (6.4-8.2) 07/13/18 07:00 Albumin 3.0 g/dl (3.4-5.0) L 07/13/18 07:00 Urine Color Yellow 07/14/18 13:35 Urine Appearance Clear 07/14/18 13:35 Urine pH 8.0 (5.0-8.0) D 07/14/18 13:35 Ur Specific [place] 1.015 (1.010-1.035) 07/14/18 13:35 Urine Protein Negative (NEGATIVE) 07/14/18 13:35 Urine Glucose (UA) Negative (NEGATIVE) 07/14/18 13:35 Urine Ketones Negative (NEGATIVE) 07/14/18 13:35 Urine Blood 1+ (NEGATIVE) H 07/14/18 13:35 Urine Nitrite Negative (NEGATIVE) 07/14/18 13:35 Urine Bilirubin Negative (<2.0 mg/dL) 07/14/18 13:35 Urine Urobilinogen 2.0 mg/dL (0.2-1.0) 07/14/18 13:35 Ur Leukocyte Esterase Negative (NEGATIVE) 07/14/18 13:35 Urine WBC (Auto) 2 /hpf (3-5) 07/14/18 13:35 Urine RBC (Auto) 7 /hpf (0-3) 07/14/18 13:35 Ur Epithelial Cells Rare /HPF (FEW) 07/14/18 13:35 Urine Bacteria Few /hpf (NONE SEEN) 07/14/18 13:35 Urine Mucus Rare 07/14/18 13:35 RPR Titer Nonreactive (NONREACTIVE) 07/13/18 07:00 lab noted - Treatment Hospital Course: Detox Protocol Followed, Responded well Patient has Accepted a Rehab Referral to: as per counselor arrangement - Medication Discharge Medications: Ambulatory Orders NK [No Known Home Medication] 02/27/18 - Diagnosis (1) Nicotine dependence Status: Acute Qualifiers: Nicotine product type: cigarettes Substance use status: in withdrawal Qualified Code(s): F17.213 - Nicotine dependence, cigarettes, with withdrawal (2) Opioid dependence with withdrawal Status: Acute (3) Substance induced mood disorder Status: Suspected (4) HCV (hepatitis C virus) Status: Chronic Qualifiers: Viral hepatitis chronicity: unspecified Hepatic coma status: without hepatic coma Qualified Code(s): B19.20 - Unspecified viral hepatitis C without hepatic coma (5) HIV (human immunodeficiency virus infection) Status: Chronic Qualifiers: HIV symptom status: unspecified Qualified Code(s): B20 - Human immunodeficiency virus [HIV] disease - AMA Did Patient Leave Against Medical Advice: Yes
[2018-07-16] MEDS ORDERED: METHADONE HCL 10 MG TABLET (FOR DETOX USE ONLY) PO ONE (10:00)
[2018-07-17] MEDS ORDERED: METHADONE HCL 5 MG TABLET (FOR DETOX USE ONLY) PO ONE (06:00)
== END 2018-07-15 08:52 | disposition left against medical advice (07) | DRG 770 ==
LOC: YASAS 14:34 → Y3N 17:28
PROVIDERS: ADMIT Neuromusculoskeletal Medicine & OMM; ATTEND Neuromusculoskeletal Medicine & OMM
PROC: HZ2ZZZZ Detoxification Services for Substance Abuse Treatment (ICD-10-PCS; principal; 2018-07-12)
DX: F11.23 Opioid dependence with withdrawal (principal); F17.213 Nicotine dependence, cigarettes, with withdrawal; F19.24 Other psychoactive substance dependence with psychoactive substance-induced mood disorder; Z21 Asymptomatic human immunodeficiency virus [HIV] infection status; B19.20 Unspecified viral hepatitis C without hepatic coma; D69.6 Thrombocytopenia, unspecified; Z91.5 Personal history of self-harm; Z59.0 Homelessness
CPT/HCPCS: 36415; 80053; 81003; 81015; 85027; 86593

== ENCOUNTER 2018-10-08 10:24 | Inpatient (IN) | payer OTHER ==
[2018-10-08 11:08] VITALS: BMI 22.3
--- NOTE | 2018-10-08 12:27 | HP ---
COWS - Scale Resting Pulse: 0= [place] 80 or Below Sweatin= Chills/Flushing Restless Observation: 3= Extraneous Movement Pupil Size: 1= Pupils >than Normal Bone or Joint Aches: 2= Severe Diffuse Aches Runny Nose/ Eye Tearin= Runny Nose/Eyes GI Upset > 30mins: 2= Nausea/Diarrhea Tremor Observation: 2= Slight Tremor Visible Yawning Observation: 1= 1-2x During Session Anxiety or Irritability: 2=Irritable/Anxious Goose Flesh Skin: 0=Smooth Skin COWS Score: 16 CIWA Score - Admission Criteria OASAS Guidelines: Admission for Medically Managed Detox: Requires at least one of the followin. CIWA greater than 12 2. Seizures within the past 24 hours 3. Delirium tremens within the past 24 hours 4. Hallucinations within the past 24 hours 5. Acute intervention needed for co occurring medical disorder 6. Acute intervention needed for co occurring psychiatric disorder 7. Severe withdrawal that cannot be handled at a lower level of care (continued vomiting, continued diarrhea, abnormal vital signs) requiring intravenous medication and/or fluids 8. Admission ROS S - HPI Chief Complaint: i need help tto stop heroin,cocaine and marijuana Allergies/Adverse Reactions: Allergies Allergy/AdvReac Type Severity Reaction Status Date / Time cephalexin [From Keflex] Allergy Severe Hives Verified 10/08/18 11:03 spicy foods Allergy Uncoded 10/08/18 11:03 History of Present Illness: this 33 years old male with heroin,cocaine and marijuana dependence,seeking detox,withdrawal symptom, multiple admissions in detox,last treatment C 07/12/18 to 07/15/18 but keep relapsing hepatitis c nicotine dependence 1 pack/day,do not want nicotine replacement no significant period of sobriety would like to go to rehab after detox Exam Limitations: No Limitations - Ebola screening Have you traveled outside of the country in the last 21 days: No Have you had contact with anyone from an Ebola affected area: No Have you been sick,other than usual withdrawal symptoms: No Do you have a fever: No - Review of Systems Constitutional: Chills, Loss of Appetite, Malaise, Night Sweats, Changes in sleep, Weakness, Unintentional Wgt. Loss EENT: reports: Tearing, Nose Congestion Respiratory: reports: No Symptoms reported Cardiac: reports: No Symptoms Reported GI: reports: Nausea, Poor Appetite, Vomiting, Abdominal cramping : reports: No Symptoms Reported Musculoskeletal: reports: Back Pain, Joint Pain, Muscle Pain Integumentary: reports: Dryness Neuro: reports: Headache, Tremors Endocrine: reports: No Symptoms Reported Psychiatric: reports: No Sypmtoms Reported, Orientated x3 Other Systems: Reviewed and Negative Patient History - Patient Medical History Hx Anemia: No Hx Asthma: No Hx Chronic Obstructive Pulmonary Disease (COPD): No Hx Cancer: No Hx Cardiac Disorders: No Hx Congestive Heart Failure: No Hx Hypertension: No Hx Hypercholesterolemia: No Hx Pacemaker: No HX Cerebrovascular Accident: No Hx Seizures: No Hx Dementia: No Hx Diabetes: No Hx Gastrointestinal Disorders: No Hx Liver Disease: Yes (Hep C ) Hx Genitourinary Disorders: No Hx Sexually Transmitted Disorders: No Hx Renal Disease (ESRD): No Hx Thyroid Disease: No Hx Human Immunodeficiency Virus (HIV): Yes (since no med) Hx Hepatitis C: Yes (not treated ) Hx Depression: Yes Hx Suicide Attempt: Yes (Tried to overdose in 2013) Hx Bipolar Disorder: No Hx Schizophrenia: No Other Medical History: no suicidal,no homicidal - Patient Surgical History Past Surgical History: No Hx Neurologic Surgery: No Hx Cataract Extraction: No Hx Cardiac Surgery: No Hx Lung Surgery: No Hx Breast Surgery: No Hx Breast Biopsy: No Hx Abdominal Surgery: No Hx Appendectomy: No Hx Cholecystectomy: No Hx Genitourinary Surgery: No Hx Section: No Hx Orthopedic Surgery: No Hx Hysterectomy: No Other Surgical History: Sx polinidal cyst in 2016 Anesthesia Reaction: No - PPD History Previous Implant?: Yes Documented Results: Negative w/proof Implanted On Prior [facility] Admission?: Yes Date: 03/01/18 Results: 0 mm PPD to be Administered?: Yes - Smoking Cessation Smoking history: Current every day smoker Have you smoked in the past 12 months: Yes Aproximately how many cigarettes per day: 20 Hx Chewing Tobacco Use: No Initiated information on smoking cessation: Yes 'Breaking Loose' booklet given: 10/08/18 - Substance & Tx. History Hx Alcohol Use: Yes Hx Substance Use: Yes Substance Use Type: Cocaine, Heroin, Marijuana Hx Substance Use Treatment: Yes ([facility] [place] 07/12/18 to 07/15/18 not completed) - Substances abused Heroin Substance route: Injection Frequency: Daily Amount used: 10 bags Age of first use: 19 Date of last use: 10/08/18 Cocaine Substance route: Injection Frequency: Daily Amount used: 2 grams Age of first use: 19 Date of last use: 10/07/18 Marijuana/Hashish Substance route: Smoking Frequency: Daily Amount used: 20$ Age of first use: 19 Date of last use: 10/08/18 Family Disease History - Family Disease History Family Disease History: Other: Father (hx of Cocaine and Alcohol dep, alive), Mother (unkown ) Admission Physical Exam [facility] - Vital Signs Vital Signs: Vital Signs - 24 hr 10/08/18 11:04 Temperature 98.1 F Pulse Rate 70 Respiratory 18 Rate Blood Pressure 106/67 - Physical General Appearance: Yes: Moderate Distress, Tremorous, Irritable, Sweating, Anxious HEENTM: Yes: Normal ENT Inspection, [place], Pharynx Normal Respiratory: Yes: Lungs Clear, Normal Breath Sounds, No Respiratory Distress Neck: Yes: Within Normal Limits, Supple, Trachea in good position Breast: Yes: Within Normal Limits Cardiology: Yes: Within Normal Limits, Regular Rhythm, Regular Rate, S1, S2 Abdominal: Yes: Within Normal Limits, Normal Bowel Sounds, Non Tender, Soft Genitourinary: Yes: Within Normal Limits Back: Yes: Muscle Spasm Musculoskeletal: Yes: full range of Motion, Back pain, Joint Stiffness, Muscle Pain Extremities: Yes: Within Normal Limits, Normal Range of Motion, Tremors 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: Yes: director data processing II-XII NML intact, Fully Oriented, Alert, Motor Strength 5/5 Integumentary: Yes: Dry Lymphatic: Yes: Within Normal Limits - Diagnostic (1) Opioid dependence with withdrawal Current Visit: No Status: Acute (2) Cannabis dependence Current Visit: No Status: Acute (3) Cocaine use, uncomplicated Current Visit: No Status: Chronic (4) History of cellulitis Current Visit: No Status: Chronic (5) IVDU (intravenous drug user) Current Visit: No Status: Chronic (6) Weight loss Current Visit: Yes Status: Acute Cleared for Admission [facility] - Detox or Rehab [facility] Level of Care: Medically Managed Detox Regimen/Protocol: Methadone Breathalyzer - Breathalyzer Breathalyzer: 0 Urine Drug Screen - Test Device Lot number: [id number] Expiration date: 05/18/20 - Control Is test valid?: Yes - Results Drug screen NEGATIVE: No Urine drug screen results: THC-Marijuana, HALINA-Cocaine, FEN-Fentanyl, MOP-Opiates , MTD-Methadone Inpatient Rehab Admission - Rehab Decision to Admit Inpatient rehab admission?: No
[2018-10-08] MEDS ORDERED: MAGNESIUM HYDROX 2400MG/30ML ORAL SUSPENSION 30 ML CUP PO PRN (12:37)
[2018-10-08] MEDS ORDERED: hydrOXYzine PAMOATE 25 MG CAPSULE (FP) PO PRN (12:37)
[2018-10-08] MEDS ORDERED: cloNIDine HCL 0.1 MG TABLET PO PRN (12:37)
[2018-10-08] MEDS ORDERED: MELATONIN 5 MG TABLETS PO PRN (12:37)
[2018-10-08] MEDS ORDERED: IBUPROFEN 400 MG TABLET (FP) PO PRN (12:37)
[2018-10-08] MEDS ORDERED: MAG HYDROX/AL HYDROX/SIMETH 30 ML UNIT-DOSE CUP PO PRN (12:37)
[2018-10-08] MEDS ORDERED: BISMUTH SUBSALICYLATE 262 MG/15 ML BTL PO PRN (12:37)
[2018-10-08] MEDS ORDERED: ACETAMINOPHEN 325 MG TABLET (FP) PO PRN ×2 (12:37)
[2018-10-08] MEDS ORDERED: MENTHOL/PHENOL 1 EACH UD MM PRN (12:37)
[2018-10-08] MEDS ORDERED: MAGNESIUM CITRATE 300 ML BOTTLE PO PRN (12:37)
[2018-10-08] MEDS ORDERED: METHOCARBAMOL 500 MG TABLET PO PRN (12:37)
[2018-10-08] MEDS ORDERED: METHADONE HCL 10 MG TABLET (FOR DETOX USE ONLY) PO ONE ×2 (12:55→23:00)
[2018-10-08] MEDS: TOLNAFTATE 1% CREAM 15 GM TUBE TP SCH ×2 (15:53→22:27)
[2018-10-08 18:26] LABS: HEMATOCRIT 35.2 % (35.4-49); MCH 29.8 pg (25.7-33.7); MEAN CELL VOLUME 87.8 fl (80-96); MEAN PLT VOLUME 8.4 fl (7.5-11.1); PLATELET COUNT 119 K/MM3 (134-434); RBC 4.01 M/mm3 (4.00-5.60); RDW 13.9 % (11.9-15.9); WHITE BLOOD COUNT 4.2 K/mm3 (4.0-10.0)
[2018-10-08 18:37] LABS: ALBUMIN 3.3 g/dl (3.4-5.0); ALK PHOS 94 U/L (45-117); ANION GAP 4 MMOL/L (8-16); BILIRUBIN,TOTAL 0.6 mg/dL (0.2-1); BLOOD UREA NITROGEN 24 mg/dL (7-18); CALCIUM 8.6 mg/dL (8.5-10.1); CHLORIDE 104 mmol/L (98-107); CO2 28 mmol/L (21-32); GLUCOSE,RANDOM 122 mg/dL (74-106); POTASSIUM 3.9 mmol/L (3.5-5.1); SGOT/AST 43 U/L (15-37); SGPT/ALT 38 U/L (13-61); SODIUM 136 mmol/L (136-145); TOT PROT 8.1 g/dl (6.4-8.2)
[2018-10-08 19:33] LABS: EPI CELLS 0.5 /HPF (0-5/HPF); URINE APPEARANCE TURBID; URINE BACTERIA 16.9 /hpf (NEGATIVE); URINE BILIRUBIN NEGATIVE (NEGATIVE); URINE CASTS 2 /lpf (0-8); URINE COLOR YELLOW; URINE GLUCOSE (UA) NEGATIVE (NEGATIVE); URINE KETONE NEGATIVE (NEGATIVE); URINE LEUK ESTERASE NEGATIVE (NEGATIVE); URINE NITRITE NEGATIVE (NEGATIVE); URINE PROTEIN TRACE (NEGATIVE); URINE RBC 2 /hpf (0-4); URINE UROBILINOGEN 0.2 mg/dL (0.2-1.0); URINE WBC 1 /hpf (0-5)
[2018-10-08] MEDS: diazePAM 5 MG TABLET PO PRN (20:17)
[2018-10-08] MEDS: THIAMINE HCL 100 MG TABLET (FP) PO SCH (22:26)
[2018-10-09] MEDS ORDERED: METHADONE HCL 10 MG TABLET (FOR DETOX USE ONLY) PO ONE (10:00)
[2018-10-09] MEDS: TOLNAFTATE 1% CREAM 15 GM TUBE TP SCH ×2 (10:50→22:22)
[2018-10-09] MEDS: PRENATAL VITAMINS W/ FOLIC ACID TABLET (FP) PO SCH (10:50)
--- NOTE | 2018-10-09 16:43 | PN ---
BHS COWS - Scale Resting Pulse: 0= [place] 80 or Below Sweatin= Chills/Flushing Restless Observation: 0= Sits Still Pupil Size: 0= Normal to Room Light Bone or Joint Aches: 2= Severe Diffuse Aches Runny Nose/ Eye Tearin= None GI Upset > 30mins: 0= None Tremor Observation of Outstretched Hands: 2= Slight Tremor Visible Yawning Observation: 2= >3x During Session Anxiety or Irritability: 2=Irritable/Anxious Goose Flesh Skin: 3=Piloerection COWS Score: 12 BHS Progress Note (SOAP) Subjective: Tremors, Nausea, Sweating, Body Aches. Objective: PATIENT A & O X 2 (UNCERTAIN ABOUT CURRENT DAY / DATE). PATIENT OBSERVED AMBULATING ON UNIT UNASSISTED. IN NO ACUTE DISTRESS. 10/09/18 16:45 Vital Signs Temperature 98.4 F 10/09/18 13:15 Pulse Rate 62 10/09/18 13:15 Respiratory Rate 18 10/09/18 13:15 Blood Pressure 113/72 10/09/18 13:15 O2 Sat by Pulse Oximetry (%) Laboratory Tests 10/08/18 10/08/18 10/08/18 13:00 13:00 13:00 WBC 4.2 RBC 4.01 Hgb 12.0 Hct 35.2 L MCV 87.8 MCH 29.8 MCHC 34.0 RDW 13.9 Plt Count 119 L MPV 8.4 Sodium 136 Potassium 3.9 Chloride 104 Carbon Dioxide 28 Anion Gap 4 L BUN 24 H Creatinine 1.0 Creat Clearance w eGFR 86.60 Random Glucose 122 H Calcium 8.6 Total Bilirubin 0.6 AST 43 H ALT 38 Alkaline Phosphatase 94 Total Protein 8.1 Albumin 3.3 L Urine Color Urine Appearance Urine pH Ur Specific [place] Urine Protein Urine Glucose (UA) Urine Ketones Urine Blood Urine Nitrite Urine Bilirubin Urine Urobilinogen Ur Leukocyte Esterase Urine WBC (Auto) Urine RBC (Auto) Urine Casts (Auto) U Epithel Cells (Auto) Urine Bacteria (Auto) RPR Titer Nonreactive 10/08/18 14:00 WBC RBC Hgb Hct MCV MCH MCHC RDW Plt Count MPV Sodium Potassium Chloride Carbon Dioxide Anion Gap BUN Creatinine Creat Clearance w eGFR Random Glucose Calcium Total Bilirubin AST ALT Alkaline Phosphatase Total Protein Albumin Urine Color Yellow Urine Appearance Turbid Urine pH 5.0 D Ur Specific [place] 1.029 Urine Protein Trace Urine Glucose (UA) Negative Urine Ketones Negative Urine Blood 1+ H Urine Nitrite Negative Urine Bilirubin Negative Urine Urobilinogen 0.2 Ur Leukocyte Esterase Negative Urine WBC (Auto) 1 Urine RBC (Auto) 2 Urine Casts (Auto) 2 U Epithel Cells (Auto) 0.5 Urine Bacteria (Auto) 16.9 RPR Titer LABS NOTED. PATIENT HAS HAD LOW PLATELET LEVELS ON PREVIOUS ADMISSIONS. 10/09/18 16:46 Assessment: 10/09/18 16:45 WITHDRAWAL SYMPTOMS. THROMBOCYTOPENIA. 10/09/18 16:47 Plan: CONTINUE DETOX. INCREASE DAILY PO FLUID / WATER INTAKE.
[2018-10-09] MEDS: diazePAM 5 MG TABLET PO PRN ×2 (18:31→22:29)
[2018-10-09] MEDS: THIAMINE HCL 100 MG TABLET (FP) PO SCH (22:22)
[2018-10-10] MEDS ORDERED: METHADONE HCL 10 MG TABLET (FOR DETOX USE ONLY) PO ONE (10:00)
[2018-10-10] MEDS: PRENATAL VITAMINS W/ FOLIC ACID TABLET (FP) PO SCH (10:05)
[2018-10-10] MEDS: TOLNAFTATE 1% CREAM 15 GM TUBE TP SCH ×2 (10:06→22:29)
[2018-10-10] MEDS: diazePAM 5 MG TABLET PO PRN ×2 (13:41→19:52)
--- NOTE | 2018-10-10 14:39 | PN ---
BHS COWS - Scale Resting Pulse: 0= [place] 80 or Below Sweatin= Chills/Flushing Restless Observation: 0= Sits Still Pupil Size: 0= Normal to Room Light Bone or Joint Aches: 1= Mild Discomfort Runny Nose/ Eye Tearin= Nasal Congestion GI Upset > 30mins: 1= Stomach Cramp Tremor Observation of Outstretched Hands: 2= Slight Tremor Visible Yawning Observation: 2= >3x During Session Anxiety or Irritability: 2=Irritable/Anxious Goose Flesh Skin: 0=Smooth Skin COWS Score: 10 BHS Progress Note (SOAP) Subjective: sleep better last night ambulating on hallway Objective: 10/10/18 14:42 Vital Signs Temperature 98.0 F 10/10/18 13:45 Pulse Rate 74 10/10/18 13:45 Respiratory Rate 18 10/10/18 13:45 Blood Pressure 122/83 10/10/18 13:45 O2 Sat by Pulse Oximetry (%) Laboratory Last Values WBC 4.2 K/mm3 (4.0-10.0) 10/08/18 13:00 RBC 4.01 M/mm3 (4.00-5.60) 10/08/18 13:00 Hgb 12.0 GM/dL (11.7-16.9) 10/08/18 13:00 Hct 35.2 % (35.4-49) L 10/08/18 13:00 MCV 87.8 fl (80-96) 10/08/18 13:00 MCH 29.8 pg (25.7-33.7) 10/08/18 13:00 MCHC 34.0 g/dl (32.0-35.9) 10/08/18 13:00 RDW 13.9 % (11.9-15.9) 10/08/18 13:00 Plt Count 119 K/MM3 (134-434) L 10/08/18 13:00 MPV 8.4 fl (7.5-11.1) 10/08/18 13:00 Sodium 136 mmol/L (136-145) 10/08/18 13:00 Potassium 3.9 mmol/L (3.5-5.1) 10/08/18 13:00 Chloride 104 mmol/L (98-107) 10/08/18 13:00 Carbon Dioxide 28 mmol/L (21-32) 10/08/18 13:00 Anion Gap 4 MMOL/L (8-16) L 10/08/18 13:00 BUN 24 mg/dL (7-18) H 10/08/18 13:00 Creatinine 1.0 mg/dL (0.55-1.3) 10/08/18 13:00 Creat Clearance w eGFR 86.60 (>60) 10/08/18 13:00 Random Glucose 122 mg/dL (74-106) H 10/08/18 13:00 Calcium 8.6 mg/dL (8.5-10.1) 10/08/18 13:00 Total Bilirubin 0.6 mg/dL (0.2-1) 10/08/18 13:00 AST 43 U/L (15-37) H 10/08/18 13:00 ALT 38 U/L (13-61) 10/08/18 13:00 Alkaline Phosphatase 94 U/L (45-117) 10/08/18 13:00 Total Protein 8.1 g/dl (6.4-8.2) 10/08/18 13:00 Albumin 3.3 g/dl (3.4-5.0) L 10/08/18 13:00 Urine Color Yellow 10/08/18 14:00 Urine Appearance Turbid 10/08/18 14:00 Urine pH 5.0 (5.0-8.0) D 10/08/18 14:00 Ur Specific [place] 1.029 (1.010-1.035) 10/08/18 14:00 Urine Protein Trace (NEGATIVE) 10/08/18 14:00 Urine Glucose (UA) Negative (NEGATIVE) 10/08/18 14:00 Urine Ketones Negative (NEGATIVE) 10/08/18 14:00 Urine Blood 1+ (NEGATIVE) H 10/08/18 14:00 Urine Nitrite Negative (NEGATIVE) 10/08/18 14:00 Urine Bilirubin Negative (NEGATIVE) 10/08/18 14:00 Urine Urobilinogen 0.2 mg/dL (0.2-1.0) 10/08/18 14:00 Ur Leukocyte Esterase Negative (NEGATIVE) 10/08/18 14:00 Urine WBC (Auto) 1 /hpf (0-5) 10/08/18 14:00 Urine RBC (Auto) 2 /hpf (0-4) 10/08/18 14:00 Urine Casts (Auto) 2 /lpf (0-8) 10/08/18 14:00 U Epithel Cells (Auto) 0.5 /HPF (0-5/HPF) 10/08/18 14:00 Urine Bacteria (Auto) 16.9 /hpf (NEGATIVE) 10/08/18 14:00 RPR Titer Nonreactive (NONREACTIVE) 10/08/18 13:00 lab noted Assessment: 10/10/18 14:42 opiate withdrawal sx Plan: continue detox
[2018-10-10] MEDS: THIAMINE HCL 100 MG TABLET (FP) PO SCH (22:29)
[2018-10-11 09:07] VITALS: BP 142/86; PULSE 70; TEMP 96.7
[2018-10-11] MEDS: diazePAM 5 MG TABLET PO PRN (09:38)
[2018-10-11] MEDS ORDERED: METHADONE HCL 10 MG TABLET (FOR DETOX USE ONLY) ONE (09:43)
[2018-10-11] MEDS ORDERED: METHADONE HCL 5 MG TABLET (FOR DETOX USE ONLY) ONE (09:43)
[2018-10-11] MEDS ORDERED: METHADONE HCL 10 MG TABLET (FOR DETOX USE ONLY) PO ONE (10:00)
[2018-10-11] MEDS ORDERED: METHADONE (DETOX) 10 MG, METHADONE (DETOX) 5 MG PO ONE (10:00)
[2018-10-11] MEDS: PRENATAL VITAMINS W/ FOLIC ACID TABLET (FP) PO SCH (10:19)
[2018-10-11] MEDS: TOLNAFTATE 1% CREAM 15 GM TUBE TP SCH (10:20)
--- NOTE | 2018-10-11 11:44 | DS ---
[facility] Detox Discharge Summary Admission Date: 10/08/18 Discharge Date: 10/11/18 - History Present History: Opioid Dependence Additional Comments: 33 years old male admitted on 10/08/18 for opiate withdrawal stabilization feeling better today wants to return to his high risk case manager who will assign resident patient preferring to discuss housing with high risk case manager who is working today alert no acute distress denies suicidal ideation patient agrees to follow up with infectious disease specialist for ART Pertinent Past History: bring in medication list and lab report to high risk case manager - Physical Exam Results Vital Signs: Vital Signs Temperature 96.7 F L 10/11/18 09:06 Pulse Rate 70 10/11/18 09:06 Respiratory Rate 18 10/11/18 09:06 Blood Pressure 142/86 10/11/18 09:06 O2 Sat by Pulse Oximetry (%) Pertinent Admission Physical Exam Findings: opiate withdrawal sx Laboratory Last Values WBC 4.2 K/mm3 (4.0-10.0) 10/08/18 13:00 RBC 4.01 M/mm3 (4.00-5.60) 10/08/18 13:00 Hgb 12.0 GM/dL (11.7-16.9) 10/08/18 13:00 Hct 35.2 % (35.4-49) L 10/08/18 13:00 MCV 87.8 fl (80-96) 10/08/18 13:00 MCH 29.8 pg (25.7-33.7) 10/08/18 13:00 MCHC 34.0 g/dl (32.0-35.9) 10/08/18 13:00 RDW 13.9 % (11.9-15.9) 10/08/18 13:00 Plt Count 119 K/MM3 (134-434) L 10/08/18 13:00 MPV 8.4 fl (7.5-11.1) 10/08/18 13:00 Sodium 136 mmol/L (136-145) 10/08/18 13:00 Potassium 3.9 mmol/L (3.5-5.1) 10/08/18 13:00 Chloride 104 mmol/L (98-107) 10/08/18 13:00 Carbon Dioxide 28 mmol/L (21-32) 10/08/18 13:00 Anion Gap 4 MMOL/L (8-16) L 10/08/18 13:00 BUN 24 mg/dL (7-18) H 10/08/18 13:00 Creatinine 1.0 mg/dL (0.55-1.3) 10/08/18 13:00 Creat Clearance w eGFR 86.60 (>60) 10/08/18 13:00 Random Glucose 122 mg/dL (74-106) H 10/08/18 13:00 Calcium 8.6 mg/dL (8.5-10.1) 10/08/18 13:00 Total Bilirubin 0.6 mg/dL (0.2-1) 10/08/18 13:00 AST 43 U/L (15-37) H 10/08/18 13:00 ALT 38 U/L (13-61) 10/08/18 13:00 Alkaline Phosphatase 94 U/L (45-117) 10/08/18 13:00 Total Protein 8.1 g/dl (6.4-8.2) 10/08/18 13:00 Albumin 3.3 g/dl (3.4-5.0) L 10/08/18 13:00 Urine Color Yellow 10/08/18 14:00 Urine Appearance Turbid 10/08/18 14:00 Urine pH 5.0 (5.0-8.0) D 10/08/18 14:00 Ur Specific [place] 1.029 (1.010-1.035) 10/08/18 14:00 Urine Protein Trace (NEGATIVE) 10/08/18 14:00 Urine Glucose (UA) Negative (NEGATIVE) 10/08/18 14:00 Urine Ketones Negative (NEGATIVE) 10/08/18 14:00 Urine Blood 1+ (NEGATIVE) H 10/08/18 14:00 Urine Nitrite Negative (NEGATIVE) 10/08/18 14:00 Urine Bilirubin Negative (NEGATIVE) 10/08/18 14:00 Urine Urobilinogen 0.2 mg/dL (0.2-1.0) 10/08/18 14:00 Ur Leukocyte Esterase Negative (NEGATIVE) 10/08/18 14:00 Urine WBC (Auto) 1 /hpf (0-5) 10/08/18 14:00 Urine RBC (Auto) 2 /hpf (0-4) 10/08/18 14:00 Urine Casts (Auto) 2 /lpf (0-8) 10/08/18 14:00 U Epithel Cells (Auto) 0.5 /HPF (0-5/HPF) 10/08/18 14:00 Urine Bacteria (Auto) 16.9 /hpf (NEGATIVE) 10/08/18 14:00 RPR Titer Nonreactive (NONREACTIVE) 10/08/18 13:00 lab noted - Treatment Hospital Course: Detox Protocol Followed, Detoxed Safely, Responded well, Discharged Condition Good, Rehab Referral Accepted Patient has Accepted a Rehab Referral to: high risk case manager - Medication Discharge Medications: Ambulatory Orders NK [No Known Home Medication] 02/27/18 - Diagnosis (1) Nicotine dependence Status: Acute Qualifiers: Nicotine product type: cigarettes Substance use status: in withdrawal Qualified Code(s): F17.213 - Nicotine dependence, cigarettes, with withdrawal (2) Opioid dependence with withdrawal Status: Acute (3) Weight loss Status: Acute (4) HCV (hepatitis C virus) Status: Chronic Qualifiers: Viral hepatitis chronicity: unspecified Hepatic coma status: without hepatic coma Qualified Code(s): B19.20 - Unspecified viral hepatitis C without hepatic coma (5) HIV (human immunodeficiency virus infection) Status: Chronic Qualifiers: HIV symptom status: unspecified Qualified Code(s): B20 - Human immunodeficiency virus [HIV] disease (6) Substance induced mood disorder Status: Suspected - AMA Did Patient Leave Against Medical Advice: No
[2018-10-12] MEDS ORDERED: METHADONE HCL 5 MG TABLET (FOR DETOX USE ONLY) PO ONE (06:00)
[2018-10-12] MEDS ORDERED: METHADONE HCL 10 MG TABLET (FOR DETOX USE ONLY) PO ONE (10:00)
[2018-10-13] MEDS ORDERED: METHADONE HCL 5 MG TABLET (FOR DETOX USE ONLY) PO ONE (06:00)
== END 2018-10-11 13:45 | disposition home or self-care (01) | DRG 773 ==
LOC: YASAS 10:24 → Y3N 12:47
PROVIDERS: ADMIT Surgery; ATTEND Surgery
PROC: HZ2ZZZZ Detoxification Services for Substance Abuse Treatment (ICD-10-PCS; principal; 2018-10-08)
DX: F11.23 Opioid dependence with withdrawal (principal); F14.20 Cocaine dependence, uncomplicated; F12.20 Cannabis dependence, uncomplicated; F17.213 Nicotine dependence, cigarettes, with withdrawal; Z21 Asymptomatic human immunodeficiency virus [HIV] infection status; B19.20 Unspecified viral hepatitis C without hepatic coma; D69.6 Thrombocytopenia, unspecified; R63.4 Abnormal weight loss; Z68.22 Body mass index [BMI] 22.0-22.9, adult; Z87.2 Personal history of diseases of the skin and subcutaneous tissue; Z91.5 Personal history of self-harm; Z59.0 Homelessness
CPT/HCPCS: 36415; 80053; 81003; 85027; 86593

== ENCOUNTER 2019-01-10 12:45 | Inpatient (IN) | payer OTHER | END 2019-01-12 12:30 | disposition left against medical advice (07) | LOC: YASAS 12:45 → Y6N 17:29 ==

== ENCOUNTER 2019-06-26 10:49 | Inpatient (IN) | payer OTHER ==
[2019-06-26 11:28] VITALS: BMI 21.1
--- NOTE | 2019-06-26 13:06 | HP ---
COWS - Scale Resting Pulse: 1= [place] 81-100 Sweatin= Chills/Flushing Restless Observation: 1= Difficult to Sit Still Pupil Size: 1= Pupils >than Normal Bone or Joint Aches: 2= Severe Diffuse Aches Runny Nose/ Eye Tearin= Runny Nose/Eyes GI Upset > 30mins: 2= Nausea/Diarrhea Tremor Observation: 2= Slight Tremor Visible Yawning Observation: 2= >3x During Session Anxiety or Irritability: 2=Irritable/Anxious Goose Flesh Skin: 0=Smooth Skin COWS Score: 16 CIWA Score Nausea/Vomitin Muscle Tremors: 2 Anxiety: 3 Agitation: 3 Paroxysmal Sweats: 1-Minimal Palms Moist Orientation: 0-Oriented Tacttile Disturbances: 1-Very Mild Itch/Numbness Auditory Disturbances: 0-None Visual Disturbances: 0-None Headache: 2-Mild CIWA-Ar Total Score: 14 - Admission Criteria [facility] Guidelines: Admission for Medically Managed Detox: Requires at least one of the followin. CIWA greater than 12 2. Seizures within the past 24 hours 3. Delirium tremens within the past 24 hours 4. Hallucinations within the past 24 hours 5. Acute intervention needed for co occurring medical disorder 6. Acute intervention needed for co occurring psychiatric disorder 7. Severe withdrawal that cannot be handled at a lower level of care (continued vomiting, continued diarrhea, abnormal vital signs) requiring intravenous medication and/or fluids 8. 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, 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 Hepatobiliary: Yes: Hepatitis C (since 2010) Infectious Disease: Yes: HIV (since 2010) Psych: Yes: Other (insomnia) Dermatology: Yes: Other (rash) - Smoking History Smoking history: Current every day smoker Have you smoked in the past 12 months: Yes Aproximately how many cigarettes per day: 20 If you are a former smoker, when did you quit?: 20 - Alcohol/Substance Use Hx Alcohol Use: Yes History of Substance Use: reports: Cocaine, Marijuana - Social History Usual Living Arrangement: Yes: Other (homeless) Occupation: unemployed Admission ROS [facility] Chief Complaint: i need help to stop using heroin,cocaine,marijuana,alcohol abused,seeking detox, withdrawal symptom,multiple admissions in stop but keep relapsing, last detox 01/10/19 to 01/12/19 not completed non compliance hiv since 2010 no medications for 6 months hepatitis c since 2010 weight loss poor dental homeless longest sobriety 8 months insomnia plan for rehab after detox Allergies/Adverse Reactions: Allergies Allergy/AdvReac Type Severity Reaction Status Date / Time pepper (genus Capsicum) Allergy Mild Swelling Verified 06/26/19 11:19 cephalexin [From Keflex] AdvReac Intermediate Rash Verified 06/26/19 11:19 History of Present Illness: this 34 years male with heroin,cocaine,marijuana,alccohol disorder for detox please see chiel complaint - Ebola screening Have you traveled outside of the country in the last 21 days: No (N) Have you had contact with anyone from an Ebola affected area: No - Review of Systems Constitutional: Chills, Loss of Appetite, Malaise, Night Sweats, Changes in sleep, Weakness, Unintentional Wgt. Loss EENT: reports: Tearing, Nose Congestion Respiratory: reports: No Symptoms reported Cardiac: reports: No Symptoms Reported GI: reports: Diarrhea, Nausea, Poor Appetite, Abdominal cramping : reports: No Symptoms Reported Musculoskeletal: reports: Back Pain, Joint Pain, Muscle Pain Integumentary: reports: Dryness Neuro: reports: Headache, Tremors Endocrine: reports: No Symptoms Reported Hematology: reports: No Symptoms Reported Psychiatric: reports: No Sypmtoms Reported, Judgement Intact, Mood/Affect Appropiate, Orientated x3, other (insomnia) Other Systems: Reviewed and Negative Patient History - Patient Medical History Hx Anemia: No Hx Asthma: No Hx Chronic Obstructive Pulmonary Disease (COPD): No Hx Cancer: No Hx Cardiac Disorders: No Hx Congestive Heart Failure: No Hx Hypertension: No Hx Hypercholesterolemia: No Hx Pacemaker: No HX Cerebrovascular Accident: No Hx Seizures: No Hx Dementia: No Hx Diabetes: No Hx Gastrointestinal Disorders: No Hx Liver Disease: Yes (Hep C since 2010) Hx Genitourinary Disorders: No Hx Sexually Transmitted Disorders: No Hx Renal Disease (ESRD): No Hx Thyroid Disease: No Hx Human Immunodeficiency Virus (HIV): Yes (since 2010 no med) Hx Hepatitis C: Yes (not treated ) Hx Depression: Yes Hx Suicide Attempt: Yes (Tried to overdose in 2013) Hx Bipolar Disorder: No Hx Schizophrenia: No Other Medical History: insomnia,no suicidal,no homicidal - Patient Surgical History Past Surgical History: No Hx Neurologic Surgery: No Hx Cataract Extraction: No Hx Cardiac Surgery: No Hx Lung Surgery: No Hx Breast Surgery: No Hx Breast Biopsy: No Hx Abdominal Surgery: No Hx Appendectomy: No Hx Cholecystectomy: No Hx Genitourinary Surgery: No Hx Section: No Hx Orthopedic Surgery: No Hx Hysterectomy: No Other Surgical History: Sx polinidal cyst in 2016 Anesthesia Reaction: No - PPD History Previous Implant?: Yes Documented Results: Negative w/o proof Date: 03/01/18 Results: 0 mm PPD to be Administered?: Yes - Smoking Cessation Smoking history: Current every day smoker Have you smoked in the past 12 months: Yes Aproximately how many cigarettes per day: 20 If you are a former smoker, when did you quit?: 20 Hx Chewing Tobacco Use: No Initiated information on smoking cessation: Yes 'Breaking Loose' booklet given: 06/26/19 - Substance & Tx. History Hx Alcohol Use: Yes Hx Substance Use: Yes Substance Use Type: Alcohol, Cocaine, Heroin, Marijuana Hx Substance Use Treatment: Yes ([facility] 01/10/18 to 01/12/18) - Substances abused Heroin Substance route: Injection Frequency: Daily Amount used: 10 bags Age of first use: 22 Date of last use: 06/26/19 Cocaine Substance route: Injection Frequency: Daily Amount used: $40-$50 Age of first use: 21 Date of last use: 06/26/19 Marijuana/Hashish Substance route: Smoking Frequency: Daily Amount used: 1-2 of joint Age of first use: 14 Date of last use: 06/26/19 Alcohol Substance route: Oral Frequency: 3-6 times per week Amount used: 1pint of chris/2 of 12 ozs of beer Age of first use: 14 Date of last use: 06/19/19 Admission Physical Exam BHS - Vital Signs Vital Signs: Vital Signs - 24 hr 06/26/19 11:16 Temperature 98.4 F Pulse Rate 81 Respiratory 17 Rate Blood Pressure 110/64 - Physical General Appearance: Yes: Moderate Distress, Tremorous, Irritable, Sweating, Anxious HEENTM: Yes: [place], Pharynx Normal, Photophobia, Other (poor dental) Respiratory: Yes: Within Normal Limits, Lungs Clear, Normal Breath Sounds Neck: Yes: Within Normal Limits, Supple, Trachea in good position Breast: Yes: Within Normal Limits Cardiology: Yes: Within Normal Limits, Regular Rhythm, Regular Rate, S1, S2 Abdominal: Yes: Within Normal Limits, Normal Bowel Sounds, Non Tender, Flat, Soft Genitourinary: Yes: Within Normal Limits Back: Yes: Within Normal Limits Musculoskeletal: Yes: Back pain, Joint Stiffness, Muscle Pain Extremities: Yes: Tremors 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 intact, Fully Oriented, Alert, Motor Strength 5/5 Integumentary: Yes: Dry, Rash, Track [place] - Diagnostic (1) Opioid dependence with withdrawal Current Visit: No Status: Acute (2) Cannabis dependence Current Visit: No Status: Acute (3) Nicotine dependence Current Visit: No Status: Acute Qualifiers: Nicotine product type: cigarettes (4) Weight loss Current Visit: No Status: Acute (5) HIV (human immunodeficiency virus infection) Current Visit: No Status: Chronic Qualifiers: HIV symptom status: unspecified Qualified Code(s): B20 - Human immunodeficiency virus [HIV] disease (6) IVDU (intravenous drug user) Current Visit: No Status: Chronic (7) Hepatitis C Current Visit: Yes Status: Acute (8) Bipolar disorder Current Visit: Yes Status: Acute (9) Alcohol use disorder Current Visit: Yes Status: Acute Cleared for Admission [facility] - Detox or Rehab [facility] Level of Care: Medically Managed Detox Regimen/Protocol: Methadone Breathalyzer - Breathalyzer Breathalyzer: 0 Urine Drug Screen - Test Device Lot number: [id number] Expiration date: 10/17/19 - Control Is test valid?: Yes - Results Drug screen NEGATIVE: No Urine drug screen results: THC-Marijuana, HALINA-Cocaine, MOP-Opiates Inpatient Rehab Admission - Rehab Decision to Admit Inpatient rehab admission?: No
[2019-06-26] MEDS ORDERED: hydrOXYzine PAMOATE 25 MG CAPSULE (FP) PO PRN (13:24)
[2019-06-26] MEDS ORDERED: MENTHOL/PHENOL 1 EACH UD MM PRN (13:24)
[2019-06-26] MEDS ORDERED: IBUPROFEN 400 MG TABLET (FP) PO PRN (13:24)
[2019-06-26] MEDS ORDERED: ACETAMINOPHEN 325 MG TABLET (FP) PO PRN ×2 (13:24)
[2019-06-26] MEDS ORDERED: cloNIDine HCL 0.1 MG TABLET PO PRN (13:24)
[2019-06-26] MEDS ORDERED: MELATONIN 5 MG TABLETS PO PRN (13:24)
[2019-06-26] MEDS ORDERED: MAGNESIUM CITRATE 300 ML BOTTLE PO PRN (13:24)
[2019-06-26] MEDS ORDERED: MAGNESIUM HYDROX 2400MG/30ML ORAL SUSPENSION 30 ML CUP PO PRN (13:24)
[2019-06-26] MEDS ORDERED: METHOCARBAMOL 500 MG TABLET PO PRN (13:24)
[2019-06-26] MEDS ORDERED: BISMUTH SUBSALICYLATE 262 MG/15 ML BTL PO PRN (13:24)
[2019-06-26] MEDS ORDERED: MAG HYDROX/AL HYDROX/SIMETH 30 ML UNIT-DOSE CUP PO PRN (13:24)
[2019-06-26] MEDS ORDERED: PERMETHRIN 5% TOPICAL CREAM 60 GM TUBE TP ONE (13:28)
[2019-06-26] MEDS ORDERED: METHADONE HCL 10 MG TABLET (FOR DETOX USE ONLY) PO ONE (14:35)
[2019-06-26 17:35] LABS: HEMOGLOBIN 12.7 GM/dL (11.7-16.9); MCHC 33.3 g/dl (32.0-35.9); MEAN CELL VOLUME 87.1 fl (80-96); MEAN PLT VOLUME 8.9 fl (7.5-11.1); PLATELET COUNT 114 K/MM3 (134-434); RBC 4.37 M/mm3 (4.00-5.60); RDW 14.4 % (11.9-15.9); WHITE BLOOD COUNT 3.9 K/mm3 (4.0-10.0)
[2019-06-26 17:46] LABS: ALBUMIN 3.5 g/dl (3.4-5.0); BILIRUBIN,TOTAL 0.3 mg/dL (0.2-1); BLOOD UREA NITROGEN 19.3 mg/dL (7-18); CALCIUM 8.5 mg/dL (8.5-10.1); POTASSIUM 3.9 mmol/L (3.5-5.1); TOT PROT 8.1 g/dl (6.4-8.2)
[2019-06-26] MEDS: HYDROCORTISONE 0.5% TOPICAL CREAM 30 GM TUBE TP SCH (23:01)
[2019-06-26] MEDS: THIAMINE HCL 100 MG TABLET (FP) PO SCH (23:23)
[2019-06-27] MEDS ORDERED: METHADONE HCL 10 MG TABLET (FOR DETOX USE ONLY) ONE ×2 (08:33→18:00)
[2019-06-27] MEDS ORDERED: METHADONE HCL 5 MG TABLET (FOR DETOX USE ONLY) ONE ×2 (08:34→18:00)
[2019-06-27] MEDS ORDERED: METHADONE (DETOX) 20 MG, METHADONE (DETOX) 5 MG PO ONE ×2 (10:00→18:00)
--- NOTE | 2019-06-27 10:09 | CONSULT ---
[facility] Psychiatric Consult - Data Date of interview: 06/27/19 Admission source: [facility] Identifying data: Patient is a 34 year old single male, without children, unemployed, homeless, and is not supported by [facility]. This is one of multiple admissions for patient. Patient admitted to for opioid and cannabis dependence. Substance Abuse History: Smoking Cessation. Smoking history: Current every day smoker. Have you smoked in the past 12 months: Yes. Aproximately how many cigarettes per day: 20. If you are a former smoker, when did you quit?: 20. Hx Chewing Tobacco Use: No. Initiated information on smoking cessation: Yes. ' Breaking Loose' booklet given: 06/26/19. - Substance & Tx. History. Hx Alcohol Use: Yes. Hx Substance Use: Yes. Substance Use Type: Alcohol, Cocaine , Heroin, Marijuana. Hx Substance Use Treatment: Yes ([facility] 01/10/18 to 01/12/18) . - Substances abused. Heroin. Substance route: Injection. Frequency: Daily. Amount used: 10 bags. Age of first use: 22. Date of last use: . Cocaine. Substance route: Injection. Frequency: Daily. Amount used: $ 40-$50. Age of first use: 21. Date of last use: 06/26/19. Marijuana/ Hashish. Substance route: Smoking. Frequency: Daily. Amount used: 1-2 of joint. Age of first use: 14. Date of last use: 06/26/19. Alcohol. Substance route: Oral. Frequency: 3-6 times per week. Amount used: 1pint of chris/2 of 12 ozs of beer. Age of first use: 14. Date of last use: 06/19/19 Medical History: Hep C, HIV Psychiatric History: Interview conducted bedside. Patient reports history of multiple psychiatric hospitalizations but is unable to recall dates and names of hospitals. Unable to recall medications accepted. Reports history of one suicide attempt many years ago. Mr. Aragon is not currently being provided with outpatient psychiatric care. At present patient denies suicidal/homicidal ideation. Physical/Sexual Abuse/Trauma History: denies. Mental Status Exam - Mental Status Exam Alert and Oriented to: Time, Place, Person Cognitive Function: Fair Patient Appearance: Unkempt Mood: Withdrawn Affect: Mood Congruent Patient Behavior: Fatigued Speech Pattern: Appropriate Voice Loudness: Moderately Soft/Quiet Thought Process: Goal Oriented Thought Disorder: Not Present Hallucinations: Denies Suicidal Ideation: Denies Homicidal Ideation: Denies Insight/Judgement: Poor Sleep: Poorly Appetite: Fair Muscle strength/Tone: Normal Gait/Station: Other (Did not observe patient's gait.) Psychiatric Findings - Problem List ([place] 1, 2,3) (1) Alcohol use disorder Current Visit: Yes Status: Acute (2) Alcohol dependence Current Visit: Yes Status: Acute Qualifiers: Substance use status: uncomplicated Qualified Code(s): F10.20 - Alcohol dependence, uncomplicated (3) Cannabis dependence Current Visit: Yes Status: Acute (4) Opioid dependence with withdrawal Current Visit: Yes Status: Acute (5) Substance induced mood disorder Current Visit: Yes Status: Suspected - Initial Treatment Plan Initial Treatment Plan: Psychoeducation provided. Detoxification in progress. Observation.
[2019-06-27] MEDS: SELENIUM SULFIDE 2.5% LOTION 4 OZ. TP SCH (10:47)
[2019-06-27] MEDS: PRENATAL VITAMINS W/ FOLIC ACID TABLET (FP) PO SCH (10:47)
[2019-06-27] MEDS: HYDROCORTISONE 0.5% TOPICAL CREAM 30 GM TUBE TP SCH ×2 (10:48→22:56)
--- NOTE | 2019-06-27 15:31 | PN ---
S CIWA - CIWA Score Nausea/Vomitin-No Nausea/No Vomiting Muscle Tremors: 4-Moderate,w/Arms Extend Anxiety: 3 Agitation: 0-Normal Activity Paroxysmal Sweats: 2 Orientation: 0-Oriented Tacttile Disturbances: 1-Very Mild Itch/Numbness Auditory Disturbances: 0-None Visual Disturbances: 1-Very Mild Sensitivity Headache: 0-None Present CIWA-Ar Total Score: 11 BHS COWS - Scale Resting Pulse: 0= [place] 80 or Below Sweatin= Chills/Flushing Restless Observation: 0= Sits Still Pupil Size: 1= Pupils >than Normal Bone or Joint Aches: 2= Severe Diffuse Aches Runny Nose/ Eye Tearin= Nasal Congestion GI Upset > 30mins: 1= Stomach Cramp Tremor Observation of Outstretched Hands: 2= Slight Tremor Visible Yawning Observation: 0= None Anxiety or Irritability: 2=Irritable/Anxious Goose Flesh Skin: 3=Piloerection COWS Score: 13 S Progress Note (SOAP) Subjective: 34 years old male admitted on 06/26/19 for alcohol and opiate withdrawal sx management treating with valium prn and methadone detox regimens patient is calm and cooperative resting in bed hydrocortison cream for rashes and itchiness Objective: 06/27/19 15:44 Vital Signs Temperature 98.8 F 06/27/19 13:07 Pulse Rate 64 06/27/19 13:07 Respiratory Rate 18 06/27/19 13:07 Blood Pressure 146/90 06/27/19 13:07 O2 Sat by Pulse Oximetry (%) Laboratory Last Values WBC 3.9 K/mm3 (4.0-10.0) L 06/26/19 13:15 RBC 4.37 M/mm3 (4.00-5.60) 06/26/19 13:15 Hgb 12.7 GM/dL (11.7-16.9) 06/26/19 13:15 Hct 38.0 % (35.4-49) 06/26/19 13:15 MCV 87.1 fl (80-96) 06/26/19 13:15 MCH 29.0 pg (25.7-33.7) 06/26/19 13:15 MCHC 33.3 g/dl (32.0-35.9) 06/26/19 13:15 RDW 14.4 % (11.9-15.9) D 06/26/19 13:15 Plt Count 114 K/MM3 (134-434) L D 06/26/19 13:15 MPV 8.9 fl (7.5-11.1) 06/26/19 13:15 Sodium 139 mmol/L (136-145) 06/26/19 13:15 Potassium 3.9 mmol/L (3.5-5.1) 06/26/19 13:15 Chloride 106 mmol/L (98-107) 06/26/19 13:15 Carbon Dioxide 27 mmol/L (21-32) 06/26/19 13:15 Anion Gap 6 MMOL/L (8-16) L 06/26/19 13:15 BUN 19.3 mg/dL (7-18) H 06/26/19 13:15 Creatinine 1.0 mg/dL (0.55-1.3) 06/26/19 13:15 Est GFR (CKD-EPI)AfAm 114.11 06/26/19 13:15 Est GFR (CKD-EPI)NonAf 98.45 06/26/19 13:15 Random Glucose 132 mg/dL (74-106) H 06/26/19 13:15 Calcium 8.5 mg/dL (8.5-10.1) 06/26/19 13:15 Total Bilirubin 0.3 mg/dL (0.2-1) 06/26/19 13:15 AST 47 U/L (15-37) H 06/26/19 13:15 ALT 53 U/L (13-61) 06/26/19 13:15 Alkaline Phosphatase 98 U/L (45-117) 06/26/19 13:15 Total Protein 8.1 g/dl (6.4-8.2) 06/26/19 13:15 Albumin 3.5 g/dl (3.4-5.0) 06/26/19 13:15 RPR Titer Nonreactive (NONREACTIVE) 06/26/19 13:15 lab noted Assessment: 06/27/19 15:45 alcohol and opiate withdrawal Plan: valium prn and methadone regimens
[2019-06-27] MEDS ORDERED: cloNIDine HCL 0.1 MG TABLET PO PRN (15:33)
[2019-06-27] MEDS ORDERED: diazePAM 5 MG TABLET PO PRN (15:36)
[2019-06-27] MEDS: THIAMINE HCL 100 MG TABLET (FP) PO SCH (22:56)
[2019-06-28] MEDS ORDERED: METHADONE HCL 10 MG TABLET (FOR DETOX USE ONLY) PO ONE (10:00)
[2019-06-28] MEDS: PRENATAL VITAMINS W/ FOLIC ACID TABLET (FP) PO SCH (10:18)
[2019-06-28] MEDS: SELENIUM SULFIDE 2.5% LOTION 4 OZ. TP SCH (10:19)
[2019-06-28] MEDS: HYDROCORTISONE 0.5% TOPICAL CREAM 30 GM TUBE TP SCH (10:19)
--- NOTE | 2019-06-28 13:12 | PN ---
[facility] CIWA - CIWA Score Nausea/Vomitin-No Nausea/No Vomiting Muscle Tremors: 2 Anxiety: 4-Mod. Anxious/Guarded Agitation: 1-Slight > Activity Paroxysmal Sweats: 1-Minimal Palms Moist Orientation: 0-Oriented Tacttile Disturbances: 2-Mild Itch/Numbness/Burn Auditory Disturbances: 0-None Visual Disturbances: 0-None Headache: 0-None Present CIWA-Ar Total Score: 10 [facility] COWS - Scale Resting Pulse: 1= [place] 81-100 Sweatin= Chills/Flushing Restless Observation: 1= Difficult to Sit Still Pupil Size: 0= Normal to Room Light Bone or Joint Aches: 1= Mild Discomfort Runny Nose/ Eye Tearin= Nasal Congestion GI Upset > 30mins: 1= Stomach Cramp Tremor Observation of Outstretched Hands: 1= Tremor [place], Not Seen Yawning Observation: 1= 1-2x During Session Anxiety or Irritability: 2=Irritable/Anxious Goose Flesh Skin: 0=Smooth Skin COWS Score: 10 [facility] Progress Note (SOAP) Subjective: c/o of body aches, chill, sweats, interrupted sleep Objective: 06/28/19 13:12 Vital Signs Temperature 97.7 F 06/28/19 09:06 Pulse Rate 88 06/28/19 09:06 Respiratory Rate 18 06/28/19 09:06 Blood Pressure 122/74 06/28/19 09:06 O2 Sat by Pulse Oximetry (%) Laboratory Last Values WBC 3.9 K/mm3 (4.0-10.0) L 06/26/19 13:15 RBC 4.37 M/mm3 (4.00-5.60) 06/26/19 13:15 Hgb 12.7 GM/dL (11.7-16.9) 06/26/19 13:15 Hct 38.0 % (35.4-49) 06/26/19 13:15 MCV 87.1 fl (80-96) 06/26/19 13:15 MCH 29.0 pg (25.7-33.7) 06/26/19 13:15 MCHC 33.3 g/dl (32.0-35.9) 06/26/19 13:15 RDW 14.4 % (11.9-15.9) D 06/26/19 13:15 Plt Count 114 K/MM3 (134-434) L D 06/26/19 13:15 MPV 8.9 fl (7.5-11.1) 06/26/19 13:15 Sodium 139 mmol/L (136-145) 06/26/19 13:15 Potassium 3.9 mmol/L (3.5-5.1) 06/26/19 13:15 Chloride 106 mmol/L (98-107) 06/26/19 13:15 Carbon Dioxide 27 mmol/L (21-32) 06/26/19 13:15 Anion Gap 6 MMOL/L (8-16) L 06/26/19 13:15 BUN 19.3 mg/dL (7-18) H 06/26/19 13:15 Creatinine 1.0 mg/dL (0.55-1.3) 06/26/19 13:15 Est GFR (CKD-EPI)AfAm 114.11 06/26/19 13:15 Est GFR (CKD-EPI)NonAf 98.45 06/26/19 13:15 Random Glucose 132 mg/dL (74-106) H 06/26/19 13:15 Calcium 8.5 mg/dL (8.5-10.1) 06/26/19 13:15 Total Bilirubin 0.3 mg/dL (0.2-1) 06/26/19 13:15 AST 47 U/L (15-37) H 06/26/19 13:15 ALT 53 U/L (13-61) 06/26/19 13:15 Alkaline Phosphatase 98 U/L (45-117) 06/26/19 13:15 Total Protein 8.1 g/dl (6.4-8.2) 06/26/19 13:15 Albumin 3.5 g/dl (3.4-5.0) 06/26/19 13:15 RPR Titer Nonreactive (NONREACTIVE) 06/26/19 13:15 Assessment: 06/28/19 13:13 Aox3 no acute distress no SI/HI anxious Full ROM no gait disturbance withdrawal sx Plan: increase po fluids continue detox continue to monitor
--- NOTE | 2019-06-28 13:22 | PN ---
[facility] Progress Note Note: Patient reports he no longer wishes to continue treatment and wants to leave AMA. Patient advised on the risk of interrupting treatment which include, relapse, overdose, injury and . Additional supportive treatment offered to help with withdrawals, patient declined at this time. Patient to follow up with out patient programs, if worsening symptoms are present to seek medical attention or call 911. Patient verbalizes understanding.
--- NOTE | 2019-06-28 13:24 | DS ---
[facility] Detox Discharge Summary Admission Date: 06/26/19 Discharge Date: 06/28/19 - History Present History: Alcohol Dependence, Cannabis Dependence, Cocaine Dependence, Opioid Dependence Additional Comments: Patient left AMA, advised on risks, follow up with outpatient, if worsening symptoms seek medical attention or call 911, patient verbalizes understanding. - Physical Exam Results Vital Signs: Vital Signs Temperature 97.7 F 06/28/19 09:06 Pulse Rate 88 06/28/19 09:06 Respiratory Rate 18 06/28/19 09:06 Blood Pressure 122/74 06/28/19 09:06 O2 Sat by Pulse Oximetry (%) Pertinent Admission Physical Exam Findings: Vital Signs No SI/HI Aox3 no acute distress EENT WNL No adventitious breath sounds full ROM no gait disturbance, ambulates independently Temperature 97.7 F 06/28/19 09:06 Pulse Rate 88 06/28/19 09:06 Respiratory Rate 18 06/28/19 09:06 Blood Pressure 122/74 06/28/19 09:06 O2 Sat by Pulse Oximetry (%) Laboratory Last Values WBC 3.9 K/mm3 (4.0-10.0) L 06/26/19 13:15 RBC 4.37 M/mm3 (4.00-5.60) 06/26/19 13:15 Hgb 12.7 GM/dL (11.7-16.9) 06/26/19 13:15 Hct 38.0 % (35.4-49) 06/26/19 13:15 MCV 87.1 fl (80-96) 06/26/19 13:15 MCH 29.0 pg (25.7-33.7) 06/26/19 13:15 MCHC 33.3 g/dl (32.0-35.9) 06/26/19 13:15 RDW 14.4 % (11.9-15.9) D 06/26/19 13:15 Plt Count 114 K/MM3 (134-434) L D 06/26/19 13:15 MPV 8.9 fl (7.5-11.1) 06/26/19 13:15 Sodium 139 mmol/L (136-145) 06/26/19 13:15 Potassium 3.9 mmol/L (3.5-5.1) 06/26/19 13:15 Chloride 106 mmol/L (98-107) 06/26/19 13:15 Carbon Dioxide 27 mmol/L (21-32) 06/26/19 13:15 Anion Gap 6 MMOL/L (8-16) L 06/26/19 13:15 BUN 19.3 mg/dL (7-18) H 06/26/19 13:15 Creatinine 1.0 mg/dL (0.55-1.3) 06/26/19 13:15 Est GFR (CKD-EPI)AfAm 114.11 06/26/19 13:15 Est GFR (CKD-EPI)NonAf 98.45 06/26/19 13:15 Random Glucose 132 mg/dL (74-106) H 06/26/19 13:15 Calcium 8.5 mg/dL (8.5-10.1) 06/26/19 13:15 Total Bilirubin 0.3 mg/dL (0.2-1) 06/26/19 13:15 AST 47 U/L (15-37) H 06/26/19 13:15 ALT 53 U/L (13-61) 06/26/19 13:15 Alkaline Phosphatase 98 U/L (45-117) 06/26/19 13:15 Total Protein 8.1 g/dl (6.4-8.2) 06/26/19 13:15 Albumin 3.5 g/dl (3.4-5.0) 06/26/19 13:15 RPR Titer Nonreactive (NONREACTIVE) 06/26/19 13:15 - Treatment Hospital Course: Discharged Condition Good Patient has Accepted a Rehab Referral to: out patient - Medication Discharge Medications: Ambulatory Orders Elviteg/Cob/Emtri/Tenof Alafen [Genvoya (Non-Formulary)] 1 tablet PO DAILY 01/10 Sulfamethoxazole/Trimethoprim [Bactrim Ds -] 1 tab PO DAILY 01/10/19 traZODone HCL [Trazodone HCl] 100 mg PO HS 01/10/19 - Diagnosis (1) Cannabis dependence Current Visit: Yes Status: Acute (2) Opioid dependence with withdrawal Current Visit: Yes Status: Acute (3) Cocaine use, uncomplicated Current Visit: No Status: Chronic (4) HIV (human immunodeficiency virus infection) Current Visit: Yes Status: Chronic Qualifiers: HIV symptom status: unspecified Qualified Code(s): B20 - Human immunodeficiency virus [HIV] disease (5) IVDU (intravenous drug user) Current Visit: Yes Status: Chronic (6) Alcohol use disorder Current Visit: Yes Status: Acute - AMA Did Patient Leave Against Medical Advice: Yes
[2019-06-28 13:26] VITALS: BP 133/89; PULSE 73; TEMP 97.3
[2019-06-29] MEDS ORDERED: METHADONE (DETOX) 10 MG, METHADONE (DETOX) 5 MG PO ONE (10:00)
[2019-06-30] MEDS ORDERED: METHADONE HCL 10 MG TABLET (FOR DETOX USE ONLY) PO ONE (10:00)
[2019-07-01] MEDS ORDERED: METHADONE HCL 5 MG TABLET (FOR DETOX USE ONLY) PO ONE (06:00)
== END 2019-06-28 14:01 | disposition left against medical advice (07) | DRG 770 ==
LOC: YASAS 10:49 → Y3N 14:14
PROVIDERS: ADMIT Allergy & Immunology; ATTEND Allergy & Immunology
PROC: HZ2ZZZZ Detoxification Services for Substance Abuse Treatment (ICD-10-PCS; principal; 2019-06-26)
DX: F11.23 Opioid dependence with withdrawal (principal); F10.230 Alcohol dependence with withdrawal, uncomplicated; F14.20 Cocaine dependence, uncomplicated; F12.20 Cannabis dependence, uncomplicated; F17.210 Nicotine dependence, cigarettes, uncomplicated; F41.9 Anxiety disorder, unspecified; F19.24 Other psychoactive substance dependence with psychoactive substance-induced mood disorder; F31.9 Bipolar disorder, unspecified; Z21 Asymptomatic human immunodeficiency virus [HIV] infection status; G47.00 Insomnia, unspecified; R63.4 Abnormal weight loss; K08.9 Disorder of teeth and supporting structures, unspecified; B18.2 Chronic viral hepatitis C; Z88.1 Allergy status to other antibiotic agents; Z88.2 Allergy status to sulfonamides; Z86.69 Personal history of other diseases of the nervous system and sense organs; Z56.0 Unemployment, unspecified; Z91.5 Personal history of self-harm; Z59.0 Homelessness
CPT/HCPCS: 36415; 80053; 85027; 86593